=== PATIENT | female | born 1950 | race Caucasian/White ===

== ENCOUNTER → 2016-11-22 | Outpatient (CLI) | payer OTHER, MEDICARE | END | disposition home or self-care (01) | LOC: C.RDSM 11:00 | PROVIDERS: ATTEND Physical Medicine & Rehabilitation Sports Medicine | DX: M17.0 Bilateral primary osteoarthritis of knee (principal) ==

== ENCOUNTER → 2017-07-05 | Outpatient (CLI) | payer OTHER, MEDICARE | END | disposition home or self-care (01) | LOC: C.RDSM 14:17 | PROVIDERS: ATTEND Physical Medicine & Rehabilitation Sports Medicine | DX: M25.551 Pain in right hip (principal) ==

== ENCOUNTER → 2017-09-25 | Outpatient (CLI) | payer OTHER, MEDICARE | END | disposition home or self-care (01) | LOC: C.RDSM 14:44 | PROVIDERS: ATTEND Physical Medicine & Rehabilitation Sports Medicine | DX: M25.551 Pain in right hip (principal); M17.0 Bilateral primary osteoarthritis of knee ==

== ENCOUNTER 2018-02-06 06:53 | Inpatient (IN) | payer OTHER, MEDICARE ==
[2018-01-24 14:32] VITALS: BMI 32.0
--- NOTE | 2018-01-24 15:18 | PAT Medication Instructions ---
Service Date January 24, 2018. Current Home Medication List Aspirin (Aspirin Ec), 81 MG PO QPM Atorvastatin (Lipitor), 20 MG PO HS Coenzyme Q10 (Ubidecarenone) (Coq10), 100 MG PO QPM Fexofenadine-Pseudoephedrine (Anabella-D 24 Hour Allergy), 1 TAB PO HS Glyburide (Micronase), 5 MG PO BID Hydrochlorothiazide (Hctz), 25 MG PO QPM Insulin Glargine (Lantus), 32 UNITS SC QAM Metformin Hcl (Glucophage Ext Rel), 1,000 MG PO BID Ramipril (Ramipril), 1 CAP PO QPM Sitagliptin Phosphate (Januvia), 100 MG PO QAM [Magnesium Tartrate], 250 MG PO BID [Nasocort], 2 SPRAYS INTNAS HS Medication Instructions For Your Scheduled Surgery - Hold the following medications starting tomorrow 01/25: Coenzyme Q10 (Ubidecarenone) (Coq10), 100 MG PO QPM - Hold the following medications the morning of surgery: Glyburide (Micronase), 5 MG PO BID Metformin Hcl (Glucophage Ext Rel), 1,000 MG PO BID Sitagliptin Phosphate (Januvia), 100 MG PO QAM [Magnesium Tartrate], 250 MG PO BID - Take the following medications as scheduled the night before surgery: Aspirin (Aspirin Ec), 81 MG PO QPM Atorvastatin (Lipitor), 20 MG PO HS Fexofenadine-Pseudoephedrine (Anabella-D 24 Hour Allergy), 1 TAB PO HS Glyburide (Micronase), 5 MG PO BID Hydrochlorothiazide (Hctz), 25 MG PO QPM Metformin Hcl (Glucophage Ext Rel), 1,000 MG PO BID Ramipril (Ramipril), 1 CAP PO QPM [Magnesium Tartrate], 250 MG PO BID [Nasocort], 2 SPRAYS INTNAS HS - For Insulin Dependent Diabetic patients: Test blood sugar A.M. of surgery. - If BLOOD SUGAR IS MORE THAN 150, take half of your regular dose of: Insulin Glargine (Lantus) -- TAKE 16 UNITS - If BLOOD SUGAR IS LESS THAN 150, do not take any: Insulin Glargine ( Lantus) If you have any questions please call us at [phone] or [phone] or [phone]
[2018-01-24 15:33] LABS: BASO % 0.4 %; BASO ABS # 0.04 K/uL (0-0.2); EOS % 1.5 %; EOS ABS # 0.16 K/uL (0-0.5); HEMATOCRIT 42.1 % (37-47); HEMOGLOBIN 14.6 g/dL (12.0-16.0); IG# 0.03 K/uL (0.00-0.02); LYMPH % 16.9 %; LYMPH ABS # 1.81 K/uL (1.2-3.4); MEAN CELL VOLUME 87.9 fL (80-100); MEAN CORPUSCULAR HEMOGLOBIN 30.5 pg (25-34); MEAN CORPUSCULAR HGB CONC 34.7 g/dl (32-36); MEAN PLATELET VOLUME 9.5 fL (7.4-10.4); MONO % 6.6 %; NEUT % 74.3 %; NEUT ABS # 7.94 K/uL (1.4-6.5); PLATELET COUNT 322 K/uL (130-400); RED CELL DISTRIBUTION WIDTH CV 12.8 % (11.5-14.5); RED CELL DISTRIBUTION WIDTH SD 40.9 fL (36.4-46.3); WHITE BLOOD COUNT 10.68 K/uL (4.8-10.8)
[2018-01-24 15:42] LABS: INR 0.9 (0.9-1.1); PTT PATIENT 24.6 SECONDS (21.0-31.0)
[2018-01-24 15:46] LABS: CALCIUM 9.9 mg/dl (8.5-10.1); CREATININE 0.93 mg/dl (0.60-1.20); POTASSIUM 3.8 mmol/L (3.5-5.1)
--- NOTE | 2018-01-24 15:51 | DIAGNOSTIC IMAGING REPORT ---
CHEST 2 VIEWS ROUTINE CLINICAL HISTORY: Preoperative chest COMPARISON STUDY: No previous studies for comparison. FINDINGS: The cardiac and mediastinal contours are normal. There is no evidence of focal pulmonary consolidation. There is no evidence of failure. No pleural effusions are visualized.[ IMPRESSION: No active disease in the chest. Electronically signed by: Adiel Saeed M.D. 01/24/2018 3:50 PM Dictated Date/Time: 01/24/2018 3:49 PM
--- NOTE | 2018-01-29 13:00 | History and Physical ---
History & Physical Date & Time of Service: January 29, 2018 at 12:36 Chief Complaint: Right Knee Arthritis Primary Care Physician: Chen Pike DO History of Present Illness Source: patient Patient is a 68-year-old female who is here today for preoperative history and physical. She is scheduled to have an elective right total knee arthroplasty by Dr. Vivek Brito on February 06, 2018. She has been having ongoing right knee pain for many months and upwards of a year. Over the last year, her pain has progressively worsened. She has failed conservative treatment which has consisted of corticosteroid injections and viscosupplementation. She has pain in her right knee that is increased with activity. Her pain is also increased with weightbearing. She has decreasing activities of daily living due to pain in her right knee. She has limited range of motion and pain with range of motion of her right knee. Aggravating activities include walking, going up and down steps, pain with rest and sometimes night pain. She states that her pain radiates from her knee up into her hip. Prior treatments include nonsteroid anti-inflammatory drugs, corticosteroid injections and viscous supplementation. She also ambulates with the assistance of a cane as needed. Due to her failure of conservative treatment, she wishes to proceed with surgery. Risks and complications of the surgery were explained to the patient. Her surgery was scheduled. Past Medical/Surgical History Past medical history: 1. Hypertension 2. High cholesterol 3. Insulin-dependent diabetes 4. Osteoarthritis 5. Acid reflux 6. Obesity Past surgical history: 1. section in June 1978 2. Right knee arthroscopy Family History Family history: There is a strong family history of cardiac disease. Patient states that her mother had a history of having a CABG and her arteries Re- clogged 6 weeks after surgery. She has had 2 brothers that have had myocardial infarctions and strokes. Father has a history of coronary thrombosis and metabolic syndrome as well as diabetes. Social History Uses a cane to assist with ambulation. She does have a walker prescription that she will get preoperatively. Smoking Status: Never Smoker Alcohol Use: none Drug Use: none Marital Status: Housing status: lives with significant other Occupational Status: employed (Works as a CPA.) Allergies Coded Allergies: Codeine (Verified Allergy, Mild, ITCHING, 01/24/18) ITCHING AND RASH Morphine (Verified Allergy, Unknown, RASH, 01/24/18) Amoxicillin (Verified Adverse Reaction, Mild, GI UPSET, 01/24/18) Home Medications Scheduled Aspirin (Aspirin Ec), 81 MG PO QPM Atorvastatin (Lipitor), 20 MG PO HS Coenzyme Q10 (Ubidecarenone) (Coq10), 100 MG PO QPM Fexofenadine-Pseudoephedrine (Anabella-D 24 Hour Allergy), 1 TAB PO HS Glyburide (Micronase), 5 MG PO BID Hydrochlorothiazide (Hctz), 25 MG PO QPM Insulin Glargine (Lantus), 32 UNITS SC QAM Metformin Hcl (Glucophage Ext Rel), 1,000 MG PO BID Ramipril (Ramipril), 1 CAP PO QPM Sitagliptin Phosphate (Januvia), 100 MG PO QAM [Magnesium Tartrate], 250 MG PO BID [Nasocort], 2 SPRAYS INTNAS HS Review of Systems Constitutional: No fever, No chills, No sweats, No fatigue Eyes: No worsening of vision, No redness, No discharge ENT: No hearing loss, No sore throat, No tinnitus, No dental problems Respiratory: No cough, No sputum, No wheezing, No shortness of breath, No dyspnea on exertion Cardiovascular: No chest pain, No edema, No palpitations Abdomen: No pain, No nausea, No vomiting, No diarrhea, No constipation Genitourinary - Female: No dysuria, No urinary frequency, No urinary urgency, No urinary incontinence Neurologic: No memory loss, No numbness/tingling Psychiatric: No depression symptoms, No anxiety, No insomnia Endocrine: No fatigue Hematologic / Lymphatic: No abnormal bleeding/bruising, No clotting problems Integumentary: No rash, No itch Allergic / Immunologic: No food allergies, No hives, No frequent infections, No poor healing Physical Exam General Appearance: WD/WN, no apparent distress Head: normocephalic, atraumatic Eyes: normal inspection, PERRL, EOMI ENT: normal ENT inspection, hearing grossly normal, TMs normal, pharynx normal Neck: supple, no adenopathy, no carotid bruits, trachea midline Respiratory/Chest: chest non-tender, lungs clear, normal breath sounds, no respiratory distress, no accessory muscle use Cardiovascular: regular rate, rhythm, no edema, no JVD, no murmur, normal peripheral pulses Abdomen/GI: normal bowel sounds, non tender, soft Extremities/Musculoskelatal: no calf tenderness, normal capillary refill, no pedal edema, non-tender, pelvis stable, + pertinent finding (Exam of right knee : Valgus alignment of both knees, left greater than right. MCL is intact. Her deformity is not passively correctable. Range of motion is 0-130 she has mild tenderness over the lateral joint line. No effusion. Normal sensation and normal motor strength throughout. She would independently do a straight leg raise.) Neurologic/Psych: no motor/sensory deficits, alert, normal mood/affect, oriented x 3 Skin: normal color, warm/dry Lymphatic: no adenopathy Diagnostics Laboratory Results 01/24/18 15:00 Red Blood Count 4.79, Mean Corpuscular Volume 87.9, Mean Corpuscular Hemoglobin 30.5, Mean Corpuscular Hemoglobin Concent 34.7, Mean Platelet Volume 9.5, Neutrophils (%) (Auto) 74.3, Lymphocytes (%) (Auto) 16.9, Monocytes (%) (Auto) 6.6, Eosinophils (%) (Auto) 1.5, Basophils (%) (Auto) 0.4, Neutrophils # (Auto) 7.94, Lymphocytes # (Auto) 1.81, Monocytes # (Auto) 0.70, Eosinophils # (Auto) 0.16, Basophils # (Auto) 0.04 01/24/18 15:00 Test 01/24/18 15:00 White Blood Count 10.68 K/uL (4.8-10.8) Red Blood Count 4.79 M/uL (4.2-5.4) Hemoglobin 14.6 g/dL (12.0-16.0) Hematocrit 42.1 % (37-47) Mean Corpuscular Volume 87.9 fL (80-100) Mean Corpuscular Hemoglobin 30.5 pg (25-34) Mean Corpuscular Hemoglobin Concent 34.7 g/dl (32-36) Platelet Count 322 K/uL (130-400) Mean Platelet Volume 9.5 fL (7.4-10.4) Neutrophils (%) (Auto) 74.3 % Lymphocytes (%) (Auto) 16.9 % Monocytes (%) (Auto) 6.6 % Eosinophils (%) (Auto) 1.5 % Basophils (%) (Auto) 0.4 % Neutrophils # (Auto) 7.94 K/uL (1.4-6.5) Lymphocytes # (Auto) 1.81 K/uL (1.2-3.4) Monocytes # (Auto) 0.70 K/uL (0.11-0.59) Eosinophils # (Auto) 0.16 K/uL (0-0.5) Basophils # (Auto) 0.04 K/uL (0-0.2) RDW Standard Deviation 40.9 fL (36.4-46.3) RDW Coefficient of Variation 12.8 % (11.5-14.5) Immature Granulocyte % (Auto) 0.3 % Immature Granulocyte # (Auto) 0.03 K/uL (0.00-0.02) Prothrombin Time 9.9 SECONDS (9.0-12.0) Prothromb Time International Ratio 0.9 (0.9-1.1) Activated Partial Thromboplast Time 24.6 SECONDS (21.0-31.0) Partial Thromboplastin Ratio 0.9 Anion Gap 8.0 mmol/L (3-11) Est Creatinine Clear Calc Drug Dose 77.0 ml/min Estimated GFR () 72.2 Estimated GFR (Non- 62.3 BUN/Creatinine Ratio 19.1 (10-20) Calcium Level 9.9 mg/dl (8.5-10.1) Diagnostic Radiology Radiology images: X-rays of bilateral knees consistent bilateral AP, lateral and merchant views. Show severe end-stage osteoarthritis subchondral sclerosis and osteophyte formation especially in the lateral compartment. He also has valgus deformity. She also degenerative changes throughout her patellofemoral joint as well. No fractures identified. CXR normal Normal EKG Impression Assessment and Plan Assessment: End-stage osteoarthritis right knee Plan: Patient is scheduled for an elective right total knee arthroplasty scheduled on February 06, [address] Vivek Brito. She will be admitted for an inpatient stay after her surgery. She will have spinal anesthesia or peripheral nerve block. We will use Lovenox 30 mg twice a day 2-4 weeks after surgery for DVT prophylaxis. Risks and complications of surgery were explained to the patient and include but are not limited to infection, pain, bleeding, scarring, nerve and blood vessel damage, wound primes, weakness, stiffness, incomplete relief of symptoms, hardware failure, fracture, loosening, wear, blood clots, embolisms , heart attack, stroke and . Informed consent was obtained. She does have a walker that she can use after surgery. Postoperative course was discussed. Inpatient stay was discussed. She will preadmission testing and which she will obtain a preoperative CBC, BMP, PT/INR, PTT, type and screen, chest x-ray, EKG and preoperative medical clearance will be obtained. She would like to go home at discharge with in home health and physical therapy for approximately 2 weeks. She will follow up with Dr. Brito as scheduled 10- 14 days after surgery for suture removal. All questions were answered and she knows call with any further problems, questions or concerns. Advanced Directives Existing Living Will: Yes Existing Power of Major Gifts Officer: Yes Resuscitation Status VTE Prophylaxis Will order VTE Prophylaxis: Yes
[~2018-02-06] VITALS: Ht 182.9 cm; Wt 107.0 kg
[2018-02-06] VITALS (9 sets, daily range): BP systolic 96–174; BP diastolic 64–95; PULSE 63–98; TEMP 36.3–36.6; O2SAT 90–97; Ht 182.9 cm; Wt 107.0 kg
[2018-02-06] MEDS: TRANEXAMIC ACID INJ 1,000 MG x 2 Bags IV SCH ×4 (06:30→09:12)
[~2018-02-06 06:53] MED LIST: ACETAMINOPHEN 500 MG TAB PO SCH; ASPI81TA28 PO; ATOR-22 PO; CEFAZOLIN 2000MG IV PUSH 15 ML IV SCH; CLONIDINE HCL 0.1 MG/24 HR TRANSDERM SYS TD SCH; COEN100C7 PO; CeleBREX 200 MG CAP PO SCH; FAMOTIDINE 20 MG TAB PO SCH; FEXO1TAB58 PO; GABAPENTIN 300 MG CAP PO SCH; GLYB5TAB8 PO; HYDR25TA4 PO; INSDGI SC; LACTATED RINGER'S 1000ML 1,000 ML IV SCH; LACTATED RINGER'S 1000ML 500 ML IV SCH; LACTATED RINGER'S 1000ML IV SCH; METF1TAB53 PO; METOCLOPRAMIDE HCL 10 MG TAB PO SCH; NASOCORT INTNAS; OXYCODONE HCL 10 MG TABCR (OXYCONTIN) PO SCH; RAMI10CA PO; ROPIVACAINE 5MG/ML 30 ML 150 MG, BUPIVACAINE 0.5% MPF INJ 30 ML, EpINEphrine HCL INJ 0.... INFIL SCH; SITA100T3 PO; TRAMADOL HCL 50 MG TAB PO SCH; [UNRECOGNIZED DRUG - OTHER] PO
[2018-02-06] MEDS ORDERED: PHENYLEPHRINE 100MCG/ML 5ML SYR IV PRN (07:00)
[2018-02-06] MEDS ORDERED: EpHEDrine SULFATE INJ 50 MG/ML AMP IV PRN (07:00)
[2018-02-06] MEDS ORDERED: ONDANSETRON INJ 2 MG/ML 2 ML VIAL IV PRN ×2 (07:00→13:15)
[2018-02-06] MEDS ORDERED: FENTANYL CITRATE INJ 50 MCG/1 ML 2 ML VIAL IV PRN (07:00)
[2018-02-06] MEDS ORDERED: ATROPINE SULFATE 0.1 MG/ML 5ML SYR IV PRN (07:00)
--- NOTE | 2018-02-06 07:39 | History & Physical Bridge Note ---
H&P Re-Evaluation Bridge Note: I have examined the patient, reviewed the History & Physical and in the interval since the performance of the History & Physical I have noted the following changes of clinical significance: No changes noted
[2018-02-06] MEDS ORDERED: MIDAZOLAM HCL 1 MG/ML 2ML VIAL ONE (07:55)
[2018-02-06] MEDS ORDERED: FENTANYL CITRATE INJ 50 MCG/1 ML 2 ML VIAL ONE (07:55)
[2018-02-06] MEDS ORDERED: NURSING VERBAL MED ORDER ONE ×3 (08:00→15:45)
[2018-02-06] MEDS ORDERED: BUPIVACAINE 0.25% 30 ML VIAL ONE (09:16)
[2018-02-06] MEDS ORDERED: BUPIVACAINE 0.5 % 5 MG/1 ML PF 10ML VIAL ONE (09:16)
[2018-02-06] MEDS ORDERED: BACITRACIN 50000 UNIT VIAL ONE (09:44)
[2018-02-06] MEDS ORDERED: ORTHO JOINT ANESTHETIC ONE (09:44)
[2018-02-06] MEDS ORDERED: VANCOMYCIN HCL 1000MG/20ML VIAL ONE (09:44)
[2018-02-06] MEDS ORDERED: POVIDONE-IODINE OP SOLN 30 ML BTL ONE (09:44)
[2018-02-06] MEDS ORDERED: PROPOFOL IV EMULSION 10 MG/ML 20 ML VIAL ONE ×3 (10:19→12:26)
[2018-02-06] MEDS ORDERED: LIDOCAINE HCL 2% 2 ML VIAL (20MG/ML) ONE (10:19)
[2018-02-06] MEDS ORDERED: ONDANSETRON INJ 2 MG/ML 2 ML VIAL ONE (10:19)
--- NOTE | 2018-02-06 12:46 | [facility] Post Operative Brief Note ---
Immediate Operative Summary Operative Date February 06, 2018. Pre-Operative Diagnosis End-Stage Osteoarthritis, Right Knee Post-Operative Diagnosis End-Stage Osteoarthritis, Right Knee Procedure(s) Performed Right Total Knee Arthroplasty Surgeon Dr. Vivek Brito Emergency Specialist Surgeon(s) Dr. Rian Frausto and Tanisha Sidhu PA-C Estimated Blood Loss 20ML Findings Consistent with Post-Op Diagnosis Specimens Permanent Solution: A.) Right Knee Bone and Tissue Drains None Anesthesia Type MAC Spinal Regional Complication(s) none Disposition Accompanied Pt To Recover: no Disposition: Recovery Room / PACU
--- NOTE | 2018-02-06 13:14 | [facility] Operative Report ---
Operative Report Operative Date February 06, 2018. Pre-Operative Diagnosis End-Stage Osteoarthritis, Right Knee Post-Operative Diagnosis End-Stage Osteoarthritis, Right Knee Procedure(s) Performed Right Total Knee Arthroplasty Surgeon Dr. Vivek Brito Homeland [employer] Program Specialist Surgeon(s) Dr. Rian Frausto and Tanisha Sidhu PA-C Estimated Blood Loss 20ML Findings Severe lateral compartment and patellofemoral osteoarthritis Specimens Permanent Solution: A.) Right Knee Bone and Tissue Drains None Anesthesia Type MAC Spinal Regional Complication(s) none Disposition no Recovery Room / PACU Indications Patient is a 68-year-old female with signs and symptoms of right knee lateral compartment osteoarthritis refractory to nonsurgical methods of management. Description of Procedure Informed consent obtained. Patient identified as Kathy Molina. She identified the operative site as the right knee. I marked with my initials. A preop surgical timeout was performed. Preop dose of IV antibiotics was given. She was positioned supine on the OR table with a tourniquet on the right thigh and a bump under the right calf. Exam under anesthesia revealed trace MCL laxity in mid position valgus alignment range of motion 0/7/125. The right leg was prepped and draped in usual sterile fashion DVT prophylaxis intraoperatively with foot pumps postoperatively with early mobility and Lovenox. The limb was exsanguinated with the Esmarch. Tourniquet inflated to 250 mmHg. A midline longitudinal incision was made approximately 20 cm in length. This was followed by medial parapatellar arthrotomy. Minimal medial release was performed. The retropatellar fat pad was resected. The synovial reflection in the lateral gutter was divided. Soft tissue on the anterior aspect of the distal femur was removed. There was significant marginal osteophytes throughout the knee particular on the patella and lateral compartment. These were removed. There are grade 4 changes on the lateral femur and tibia with eburnation and central wear. There is grade 3 and 4 chondrosis of the patella and of the lateral compartment. The cruciate ligaments were intact and the medial side looked relatively normal. The cruciate ligaments were resected and the knee was subluxated. Corrections Caseworker hole was drilled into the proximal tibia just in front of the tibial spines. An intramedullary alignment selena was inserted. The 0 cutting block was aligned and set to take 6 off of the medial side corresponding to a skim cut laterally. This cut was then made. A ferry pilot hole was drilled into the distal femur followed by insertion of the distal femoral cutting guide set at 5 valgus angle 14 mm thickness. This cut was made in the extension gap was too tight and therefore went back and recut an additional 2 off of the tibia which resulted in a symmetric 10 space. The trans-epicondylar axis was marked out the distal femoral sizing block was applied and sized to a 4. The external rotation holes were drilled the cutting block was applied. Collateral ligaments protected and the cuts were made. There was a symmetric rectangular flexion gap for a 10 spacer. There was a trace bit of residual MCL laxity both in full extension and at 90. The box cutting guide was applied lateralized and this cut was made in the 4 standard prosthesis was applied. On the tibial side a size 3 was aligned and pinned in place. The keel was prepared with the drill and punch. This was followed by trialing which showed demonstrated full extension neutral alignment no laxity in full extension. There was trace LCL laxity at mid position and trace to 1+ in mid position. There is trace MCL laxity at 90 and nothing laterally. Attention was turned the patella was measured to be 22 mm in thickness the guide was set preserved 14 mm of bone and the cut was made a 38 oval dome patella was aligned and the lug holes were drilled. The or the joint mix was injected in the back of the knee the canals are plugged and pulse lavage of the bony surfaces was performed followed by meticulous drying. 2 bags of Simplex P cement each containing 2 g of vancomycin were mixed for 1 minute. Then while in a doughy state the posterior condyles were smeared and the femur tibia and patella were cemented in place and the knee was held for extension until cement hardened. At this time the tourniquet was let down and meticulous hemostasis was performed. Extraneous cement was removed from the back of the knee. Trialing again was performed and the after mentioned laxity pattern was noted and the final 10 mm thick polyethylene insert was applied. [place] assisted flexion with the extensor mechanism closed was approximately 120-125. Composite patellar thickness was 24 mm. Patella tracked perfectly fine with no hands technique. Copious lavage was performed. The cement was hardening needing the rest of the or the joint mix was injected in the Betadine lavage was performed. The extensor mechanism was closed with #2 FiberWire and above the equator the patella and running and interrupted #1 Vicryl below the skin was closed in layers with 0 and 2-0 Vicryl and dipak on the skin. A soft sterile dressing was applied consisting of ABDs 4 x 4's Xeroform and a full-length Buster wrap. Patient was then awakened from anesthesia without difficulty and taken to the recovery room in stable condition. The resected bone was sent for specimen. There were no complications. Counts were correct in the case. Blood loss is estimated to be 20 cc. Patient will be rehabilitated according to the a standard total knee protocol. Lovenox will be done the morning after surgery. Components inserted with the [employer] PFC Sigma rotating platform knee a size 10 spacer 3 tibia 4 left posterior stabilized femur and a 38 mm 3 peg oval dome patella. The back of the knee was inspected for cement. Prior to inserting the components small osteophytes posterior medial and posterior lateral were removed with an osteotome curette and rongeur. I attest to the content of the Intraoperative Record and any orders documented therein. Any exceptions are noted below.
[2018-02-06] MEDS ORDERED: ACETAMINOPHEN 325 MG TAB PO PRN (13:15)
[2018-02-06] MEDS ORDERED: HYDROmorphone INJ 0.5 MG/0.5 ML SYR IV PRN (13:15)
[2018-02-06] MEDS ORDERED: DiphenhydrAMINE HCL 50 MG/ML VIAL IV PRN (13:15)
[2018-02-06] MEDS ORDERED: TRAMADOL HCL 50 MG TAB PO PRN (13:15)
[2018-02-06] MEDS ORDERED: MAGNESIUM HYDROXIDE SUSP 30 ML UDC PO PRN (13:15)
[2018-02-06] MEDS ORDERED: METOCLOPRAMIDE HCL INJ 5 MG/ML 2 ML VIAL IV PRN (13:15)
[2018-02-06] MEDS ORDERED: SOD PHOSPHATE/SOD BIPHOSPHATE ENEMA 132 ML BTL PR PRN (13:15)
[2018-02-06] MEDS ORDERED: BISACODYL 10 MG SUPP PR PRN (13:15)
--- NOTE | 2018-02-06 13:28 | [facility] Operative Report ---
Operative Report Operative Date February 06, 2018. Pre-Operative Diagnosis End-Stage Osteoarthritis, Right Knee Post-Operative Diagnosis End-Stage Osteoarthritis, Right Knee Procedure(s) Performed Right Total Knee Arthroplasty Surgeon Dr. Vivek Brito Powder Hand Surgeon(s) Dr. Rian Frausto and Tanisha Sidhu PA-C Estimated Blood Loss 20ML Findings DJD right knee Specimens Permanent Solution: A.) Right Knee Bone and Tissue Drains None Anesthesia Type MAC Spinal Regional Complication(s) none Disposition no Recovery Room / PACU Description of Procedure Patient was taken to the operating room, placed under IV sedation with spinal anesthesia. She also had a peripheral nerve block of her right lower extremity. Timeout was performed. She was given 2 g of IV Ancef for surgical prophylaxis. She was prepped and draped in routine sterile fashion. I was present in the entire case, please see Dr. Brito's operative report for further detail. Patient was awakened and transferred to the recovery room in stable condition. I attest to the content of the Intraoperative Record and any orders documented therein. Any exceptions are noted below.
--- NOTE | 2018-02-06 13:40 | Anesthesiology Progress Note ---
Anesthesia Post Op Note Date & Time February 06, 2018 at 13:40 Vital Signs Pain Intensity: 0 Vital Signs Past 12 Hours Date Time Temp Pulse Resp B/P (MAP) Pulse Ox O2 Delivery O2 Flow Rate FiO2 02/06/18 13:30 79 18 134/68 94 Nasal Cannula 2 02/06/18 13:20 85 18 139/69 95 Nasal Cannula 2 02/06/18 13:13 36.5 88 17 132/83 95 Nasal Cannula 2 02/06/18 08:04 36.6 98 20 174/95 92 Room Air Notes Mental Status: alert / awake / arousable, participated in evaluation Pt Amnestic to Procedure: Yes Nausea / Vomiting: adequately controlled Pain: adequately controlled Airway Patency, RR, SpO2: stable & adequate BP & HR: stable & adequate Hydration State: stable & adequate Neuraxial Anesthesia: was administered, sensory block is resolving Anesthetic Complications: no major complications apparent
[2018-02-06] MEDS ORDERED: PHARMACY GLYCEMIC MGMT CONSULT PRN (13:54)
--- NOTE | 2018-02-06 14:04 | DIAGNOSTIC IMAGING REPORT ---
RIGHT KNEE 2 VIEWS History: Right total knee arthroplasty. Degenerative arthritis. Postop. FINDINGS: The patient is status post a right total knee arthroplasty. The hardware is intact. No fracture or dislocation. Skin dipak are in place. IMPRESSION: Right total knee arthroplasty. No evidence for hardware complication. Electronically signed by: Jesse Hopper M.D. 02/06/2018 2:02 PM Dictated Date/Time: 02/06/2018 2:02 PM
--- NOTE | 2018-02-06 15:02 | Pharmacy Progress Note ---
Glycemic Control Intl Consult Date of Service February 06, 2018. Scope Glycemic Pharmacist consulted by Katya Sidhu PA-C on 02/06/18 for glycemic control and to write orders per [facility] inpatient glycemic control protocol Objective Weight (Kilograms): 107.000 Accuchecks BSG (last 24hrs): Test 02/06/18 07:23 02/06/18 13:16 Bedside Glucose 185 mg/dl (70-90) 161 mg/dl (70-90) Recent Pertinent Medications Outpatient Anti-diabetic Regimen: * Lantus 32 units SQ daily * Glyburide * Metformin * Januvia Risk Factors for Insulin Resistance: * Steroids * Recent Surgery * Diet Assessment & Plan ASSESSMENT: * 68yo T2DM female with unknown degree of outpatient control. A1c not reported. Will order per protocol for AM labs POD#1 * Pt is maintained on oral antidiabetic agents as an outpatient * Oral agents are not recommended for inpatient use d/t drug interactions, changing PO intake, and difficulty titrating for acute hyper/hypoglycemia. ADA recommends re-initiating outpatient oral agents 1-2 days prior to discharge if/ when appropriate if they were held on admission. * Will hold oral agents for admission and utilize SQ basal bolus insulin regimen which is the recommended regimen for inpatient glycemic control. * Will initiate stressed outpatient insulin dosing for stress of surgery/ steroids/held oral agents titrate based on BSG trends. PLAN FOR INPATIENT GLYCEMIC CONTROL: * Outpatient oral diabetes medications * May continue Januvia as it has a very low risk of hypoglycemia and can help minimize doses of insulin needed * Hold metformin until at least POD#1 after renal function assessed and PO intake adequate * Hold glipizide until discharge as it has a high risk of hypoglycemia * Basal insulin * Continue outpatient dosing, but stress dosing x 1 today in anticipation of increased needed from surgery/held oral agents and ordered dxm tomorrow AM * Lantus 42 units SQ x 1 dose now then resume outpatient dosing of Lantus 32 units SQ AM tomorrow * Bolus insulin * NovoLog per scale ACHS or Q6hrs while NPO * Goal Range: Low 110 mg/dL - High 140 mg/dL * Correction Factor: 20 mg/dL/unit * Nutritional / Prandial insulin per carb ratio of 1 unit per 6 grams CHO consumed * A1c with AM labs * Please note that the plan above was derived based on current level of insulin resistance and hospital stress. These recommendations are appropriate for inpatient admission only. Plan of care upon discharge will need to be reassessed to avoid potential outpatient hypo/hyperglycemia. Thank you.
[2018-02-06] MEDS ORDERED: INSULIN GLARGINE SOLOSTAR 100 UNITS/ML 3 ML PEN SC ONE (15:15)
[2018-02-06] MEDS: CHECK CLONIDINE PATCH PLACEMENT SCH ×2 (15:30→23:36)
[2018-02-06] MEDS: KETOROLAC TROMETHAMINE 15 MG/ML VIAL IV. SCH ×2 (15:35→21:21)
[2018-02-06] MEDS: SITAGLIPTIN 100 MG TAB PO SCH (16:39)
[2018-02-06] MEDS: HYDROCHLOROTHIAZIDE 25 MG TAB PO SCH (16:39)
[2018-02-06] MEDS: SODIUM CHLORIDE 0.9% 1000ML 1,000 ML IV SCH (16:39)
[2018-02-06] MEDS: ENALAPRIL MALEATE 10 MG TAB PO SCH (16:39)
--- NOTE | 2018-02-06 16:54 | Progress Note ---
Progress Note Date of Service February 06, 2018. Progress Note She is resting comfortably in bed. Pain is minimal. She is afebrile her vital signs are stable. She has a 2+ dorsalis pedis pulse with normal sensation. She has 5 out of 5 ankle into plantarflexion and dorsiflexion strength. She has a half grade weakness on plantar flexion. Her dressing is clean and dry. Surgical findings reviewed and discussed. She will continue along the postoperative plan for now. X-rays of the knee show excellent positioning neutral alignment and no evidence of complication.
[2018-02-06] MEDS: OXYCODONE HCL IR 5 MG TAB (IMMEDIATE RELEASE) PO PRN ×2 (17:13→23:35)
[2018-02-06] MEDS: INSULIN ASPART 100 UNITS/ML 3 ML PEN SC SCH ×2 (17:54→21:23)
[2018-02-06] MEDS: CEFAZOLIN IV 2,000 MG in SYRINGE 0 ML IV SCH (19:01)
[2018-02-06] MEDS ORDERED: HYDROCHLOROTHIAZIDE 25 MG TAB PO SCH (21:00)
[2018-02-06] MEDS ORDERED: ENALAPRIL MALEATE 10 MG TAB PO SCH (21:00)
[2018-02-06] MEDS ORDERED: NON-FORMULARY MEDICATION (Coenzyme Q10 (Ubidecarenone) (Coq10) 100 MG) PO SCH (21:00)
[2018-02-06] MEDS ORDERED: INSULIN GLARGINE SOLOSTAR 100 UNITS/ML 3 ML PEN SC SCH (21:00)
[2018-02-06] MEDS ORDERED: METFORMIN HCL 500 MG TABCR PO SCH (21:00)
[2018-02-06] MEDS: TRIAMCINOLONE ACET NASAL SPRAY 10.8ML BTL SCH (21:18)
[2018-02-06] MEDS: DOCUSATE SODIUM 100 MG CAP PO SCH (21:19)
[2018-02-06] MEDS: FEXOFENADINE HCL 180 MG TAB PO SCH (21:19)
[2018-02-06] MEDS: ASPIRIN 81 MG ECTAB PO SCH (21:20)
[2018-02-06] MEDS: ATORVASTATIN 20 MG TAB PO SCH (21:20)
[2018-02-06] MEDS: MAGNESIUM OXIDE 400 MG TAB PO SCH (21:20)
[2018-02-07] MEDS: CEFAZOLIN IV 2,000 MG in SYRINGE 0 ML IV SCH (02:23)
[2018-02-07] MEDS: SODIUM CHLORIDE 0.9% 1000ML 1,000 ML IV SCH ×2 (02:23→09:12)
[2018-02-07 03:05] VITALS: BP 99/60; PULSE 65; TEMP 36.6; O2SAT 95
[2018-02-07] MEDS: KETOROLAC TROMETHAMINE 15 MG/ML VIAL IV. SCH ×2 (04:32→10:29)
[2018-02-07 07:08] LABS: HEMATOCRIT 32.2 % (37-47); HEMOGLOBIN 10.7 g/dL (12.0-16.0); MEAN CELL VOLUME 90.4 fL (80-100); MEAN CORPUSCULAR HEMOGLOBIN 30.1 pg (25-34); MEAN CORPUSCULAR HGB CONC 33.2 g/dl (32-36); PLATELET COUNT 210 K/uL (130-400); RED CELL DISTRIBUTION WIDTH CV 12.8 % (11.5-14.5); RED CELL DISTRIBUTION WIDTH SD 42.8 fL (36.4-46.3); WHITE BLOOD COUNT 11.52 K/uL (4.8-10.8)
[2018-02-07] MEDS ORDERED: DEXAMETHASONE 4 MG TAB PO SCH (07:30)
[2018-02-07 07:42] VITALS: BP 100/64; PULSE 65; TEMP 36.5; O2SAT 98
[2018-02-07 07:45] LABS: CALCIUM 8.2 mg/dl (8.5-10.1); POTASSIUM 4.2 mmol/L (3.5-5.1)
[2018-02-07] MEDS: OXYCODONE HCL IR 5 MG TAB (IMMEDIATE RELEASE) PO PRN ×3 (07:49→22:03)
[2018-02-07] MEDS: CHECK CLONIDINE PATCH PLACEMENT SCH ×3 (07:50→23:45)
[2018-02-07] MEDS: PANTOprazole SOD 40 MG TAB PO SCH (08:51)
[2018-02-07] MEDS: MULTIVITAMIN TAB PO SCH (08:51)
[2018-02-07] MEDS: DOCUSATE SODIUM 100 MG CAP PO SCH ×2 (08:52→22:04)
--- NOTE | 2018-02-07 08:52 | Orthopedic Progress Note ---
Orthopedic Progress Note Date of Service February 07, 2018. Subjective Post OP Day: 1 Reports: feeling well, pain controlled w PO medications, Denies: complaints, chest pain, SOB, nausea / vomiting, light headedness, calf pain Objective calves soft nontender, N/V intact, capillary refill less than 2 sec., dressing C /D/I, A&O x3, toes mobile Strength 5/5. Sitting at beside, knee flexed to approximately 90 degrees. distal pulses 1+ Date Time Temp Pulse Resp B/P (MAP) Pulse Ox O2 Delivery O2 Flow Rate FiO2 02/07/18 08:00 Room Air 02/07/18 07:42 36.5 65 20 100/64 (76) 98 Room Air 02/07/18 03:05 36.6 65 17 99/60 (73) 95 Room Air 02/06/18 23:25 Room Air 02/06/18 22:38 36.5 63 16 112/73 (86) 97 Room Air 02/06/18 19:24 36.6 18 96/65 (75) 95 Room Air 02/06/18 17:11 36.3 73 16 159/78 (105) 90 Room Air 02/06/18 16:13 36.4 72 17 140/81 (100) 97 Nasal Cannula 2.0 02/06/18 15:14 36.3 75 18 118/77 (91) 94 Room Air 02/06/18 15:05 36.4 73 18 122/76 (91) 97 Nasal Cannula 2.0 02/06/18 15:00 Nasal Cannula 2.0 02/06/18 14:30 83 16 137/83 (101) 95 02/06/18 14:05 36.4 69 18 129/64 (85) 96 Nasal Cannula 2.0 02/06/18 14:05 Nasal Cannula 2.0 02/06/18 13:40 36.7 77 16 138/72 95 Nasal Cannula 2 02/06/18 13:30 79 18 134/68 94 Nasal Cannula 2 02/06/18 13:20 85 18 139/69 95 Nasal Cannula 2 02/06/18 13:13 36.5 88 17 132/83 95 Nasal Cannula 2 Laboratory Results 24 Hours: Test 02/07/18 06:53 Hematocrit 32.2 % Hemoglobin 10.7 g/dL Assessment & Plan Assessment: POD 1 - Right TKA Plan: OOB/WBAT RLE - with assistance of a walker H/H stable BSG well controlled - appreciate glycemic control assistance Ice to right knee as needed for pain/swelling Elevate right lower leg for swelling Ambulate as tolerated, encouraged exercises, but to not over do it. Continue Regular diet Lovenox to start this AM for DVT prophylaxis. Plans for discharge to home with home health and PT, probably tomorrow. Case management for disposition. Call with questions. Dr. Brito present for today's visit. Discharge Planning Discharge Planning: home with home health Pain Management: Percocet, Ultram DVT Prophylaxis: TEDs, Lovenox (30mg BID x 14 days.) Therapy: Physical Therapy
[2018-02-07] MEDS: ENOXAPARIN 30 MG/0.3 ML SYR SQ SCH ×2 (08:53→19:55)
[2018-02-07] MEDS: MAGNESIUM OXIDE 400 MG TAB PO SCH ×2 (08:53→22:05)
[2018-02-07] MEDS: INSULIN ASPART 100 UNITS/ML 3 ML PEN SC SCH ×4 (08:59→22:01)
[2018-02-07] MEDS ORDERED: SITAGLIPTIN 100 MG TAB PO SCH (09:00)
[2018-02-07] MEDS: INSULIN GLARGINE SOLOSTAR 100 UNITS/ML 3 ML PEN SC SCH (09:00)
[2018-02-07 09:17] LABS: HEMOGLOBIN A1C 6.5 % (4.5-5.6)
--- NOTE | 2018-02-07 10:21 | Clinical Documentation Query ---
CLINICAL DOCUMENTATION QUERY Dr. TRAVIS, In your clinical opinion is this patient being managed for: ( x ) Acute blood loss anemia ( ) Not Agree ( ) Other explanation of clinical findings (No explanation is considered a No Response) ( ) Unable to determine ( ) Need to Discuss (Phone CDS or qliq) (No discussion is considered a No Response) The medical record reflects the following clinical findings, treatment, and risk factors. Clinical Indicators: 68 yo female presenting with end stage OA R knee for a R TKR. Baseline Hgb 14.6, Hct 42.1, post op 10.7/32.2. Slightly hypotensive with BP 96/65 Treatment: monitor CBC, IV fluids Risk Factors: surgery Please clarify and document your clinical opinion in the progress notes and discharge summary. Terms such as "probable", "suspected", "likely", "questionable", "possible", or "still to be ruled out" are acceptable. IF IN AGREEMENT, YOU MUST DOCUMENT ABOVE DIAGNOSTIC STATEMENT IN DAILY PROGRESS NOTES AND DISCHARGE SUMMARY. This document is not part of the patient's record. Thank You, Bridgett Machado RN [phone]
--- NOTE | 2018-02-07 11:03 | Pharmacy Progress Note ---
Pharmacy Glycemic Short Note 2 Date of Service February 07, 2018. Item Value Date Time Hemoglobin A1c 6.5 % H 02/07/18 0653 Estimated Average Glucose 140 mg/dl 02/07/18 0653 Item Value Date Time Bedside Glucose 185 mg/dl H 02/06/18 0723 Bedside Glucose 161 mg/dl H 02/06/18 1316 Bedside Glucose 272 mg/dl H 02/06/18 1715 Bedside Glucose 242 mg/dl H 02/06/18 2038 Bedside Glucose 136 mg/dl H 02/07/18 0821 ASSESSMENT: * 68yo T2DM female with excellent outpatient control per recent A1c * Pt POD#1 s/p R TKA. goal is to maintain all BSGs <200 mg/dl (ideally <150 mg/ dl) to prevent post-op infectious complications * Glipizide and metformin on hold for admission * Continuing outpatient Basal insulin (Lantus), Januvia and utilizing SQ bolus insulin with NovoLog while Glipizide/metformin on hold * Pt tolerating PO, renal function WNL. Will resume metformin this evening and adjust bolus insulin parameters. * Resume glipizide on discharge secondary to high hypo risk with inpatient use. * Pt received one time dose of PO dexamethasone this morning * Expect BSGs to rise for the next 24-48hrs. Will continue aggressive bolus insulin scale and adjust based on BSG trends. PLAN FOR INPATIENT GLYCEMIC CONTROL: * Hold outpatient oral diabetes medications (Glipizide only) * Continue Januvia 100mg PO daily at 12 noon * Re-start Metformin ER 1,000mg PO BIDM this evening * Basal insulin * Lantus 32 units SQ daily in AM * Bolus insulin * NovoLog per scale ACHS or Q6hrs while NPO * Goal Range: Low 110 mg/dL - High 140 mg/dL * Correction Factor: 20 mg/dL/unit * Nutritional / Prandial insulin per carb ratio of 1 unit per 6 grams CHO consumed
[2018-02-07 11:14] VITALS: O2SAT 98
[2018-02-07 11:47] VITALS: BP 104/68; PULSE 73; TEMP 36.5; O2SAT 88
[2018-02-07] MEDS: SITAGLIPTIN 100 MG TAB PO SCH (13:12)
[2018-02-07] MEDS: HYDROCHLOROTHIAZIDE 25 MG TAB PO SCH (13:13)
[2018-02-07] MEDS: ENALAPRIL MALEATE 10 MG TAB PO SCH (13:13)
[2018-02-07 15:08] VITALS: BP 103/60; PULSE 67; TEMP 36.8; O2SAT 94
[2018-02-07] MEDS: METFORMIN HCL 500 MG TABCR PO SCH (18:09)
[2018-02-07] MEDS: TRIAMCINOLONE ACET NASAL SPRAY 10.8ML BTL SCH (21:00)
[2018-02-07] MEDS ORDERED: INSULIN GLARGINE SOLOSTAR 100 UNITS/ML 3 ML PEN SC SCH (21:00)
[2018-02-07] MEDS: CeleBREX 200 MG CAP PO SCH (22:05)
[2018-02-07] MEDS: FEXOFENADINE HCL 180 MG TAB PO SCH (22:20)
[2018-02-07] MEDS: ATORVASTATIN 20 MG TAB PO SCH (22:20)
[2018-02-07] MEDS: ASPIRIN 81 MG ECTAB PO SCH (22:20)
[2018-02-07 23:28] VITALS: BP 103/65; PULSE 74; TEMP 36.8; O2SAT 93
[2018-02-08 06:49] LABS: PTT PATIENT 29.2 SECONDS (21.0-31.0)
[2018-02-08 06:56] VITALS: BP 103/66; PULSE 74; TEMP 36.6; O2SAT 92
[2018-02-08] MEDS: OXYCODONE HCL IR 5 MG TAB (IMMEDIATE RELEASE) PO PRN (07:11)
[2018-02-08] MEDS: CHECK CLONIDINE PATCH PLACEMENT SCH (07:38)
[2018-02-08] MEDS: PANTOprazole SOD 40 MG TAB PO SCH (07:39)
[2018-02-08] MEDS: MULTIVITAMIN TAB PO SCH (07:39)
[2018-02-08] MEDS: INSULIN ASPART 100 UNITS/ML 3 ML PEN SC SCH ×2 (07:47→12:00)
[2018-02-08] MEDS: INSULIN GLARGINE SOLOSTAR 100 UNITS/ML 3 ML PEN SC SCH (07:48)
[2018-02-08 07:52] VITALS: BP 116/74; PULSE 73; TEMP 36.9; O2SAT 92
[2018-02-08] MEDS ORDERED: OXYC-57 PO (08:21)
[2018-02-08] MEDS ORDERED: LVNIS30 SQ (08:21)
[2018-02-08] MEDS ORDERED: ULT50X PO (08:21)
--- NOTE | 2018-02-08 08:22 | Discharge Instructions ---
Discharge Instructions Date of Service February 07, 2018. Admission Reason for Admission: Right Knee Arthritis Discharge Discharge Diagnosis / Problem: Degenerative Joint disease right knee Discharge Goals Goal(s): Decrease discomfort, Improve function, Increase independence Activity Recommendations Activity Limitations: per Instructions/Follow-up section Weightbearing Status: Right weightbearing (as tolerated with assistance of a walker) . Instructions / Follow-Up Instructions / Follow-Up New Medicine: * You will likely be taking one or more of these medications: 1. Lovenox- You will be on Lovenox for 2-4 weeks after surgery to prevent blood clots. Do not take anti- inflammatory pills (Advil or Aleve) while on Lovenox. Aspirin, 81 mg is OK. 2. Percocet - Take, as directed, when you need it, every four to six hours to control your pain. 3. Colace & Senokot - Take to prevent constipation which can be caused by narcotics. These can be bought [id number] at the pharmacy 4. Tramadol - Take, as directed, when you need it, every 4-6 hours to control your pain. * The most common side effects of pain medicine and iron are nausea and constipation. If nausea or constipation is too much of a problem or if you have any questions about your new medicines or doses, call [facility] at . We will try to help you manage these issues. VERY IMPORTANT TO READ AND REVIEW" Blood Clots and Blood Thinning Medicine: * You are given Lovenox during the immediate post-operative period to lessen the risk of blood clots forming in your legs and/or lungs. Lovenox is usually given for 2-4 weeks after surgery. * The prescription is for 30 mg injections. Take twice daily at the same time every day. * You need to get your blood checked on Monday or as directed. It's a blood count to check your platelet count. A prescription is provided at discharge that you will give to your home health nurse. Physical Therapy: * Do your physical therapy at home. These are the exercises you learned while in the hospital (quad sets, leg raises, calf pumps, gluteal squeezes, knee bending, and heel props.) You should do these exercises 3-4 times per day. * You will either go to inpatient rehab ([facility]), home with Home Therapy and nursing or home with outpatient rehab. You should do rehab with the therapist 2-3 times per week. You should do therapy on your own daily. * You may bear full weight on your leg with crutches or walker unless otherwise advised. Home Exercise: * You were shown a series of exercises (heel props, heel slides, etc.) in the hospital. Do these exercises three to four times each day including the exercises you were shown in physical therapy. Walking: * You may be up for short periods of time. Standing and walking for 1-2 hours at a time is usually okay. You should not stand or walk for excessive periods of time as this may cause increased pain and swelling. SELF CARE INSTRUCTIONS AFTER TOTAL KNEE REPLACEMENT A. You may need to continue a physical therapy program after discharge from the hospital. There are several options available to you. Your doctor will assist you in selecting the best one for you. 1. An out-patient facility 2 to 3 times a week for therapy or home therapy. 2. Continue working on all exercises taught to you in the hospital. Your goals should be to increase bending of your knee to 90 degrees and beyond and to fully straighten your knee. B. Your therapist will notify you when you are able to progress from a walker to a cane. C. Wear TEDS as much as possible.~ They may be removed at night for laundering. D. Do not place a pillow behind your knee when resting. A pillow at your ankle is okay. E. Ice your knee 15-20 minutes every 2-3 hours and elevate it above the level of your heart. F. You may shower on the fourth day after surgery using regular soap and water. Do not submerge until the wound is completely healed (approximately 2 weeks ). Until the fourth day after surgery, cover the incision/bandage with a bag or plastic wrap. G. Anyone who is touching your surgical incision area should wash their hands and wear gloves. H. Keep your incision covered with gauze pads under the GEOVANNY hose until it is dry. VERY IMPORTANT TO READ AND REVIEW A. YOU WILL BE GIVEN AN ORDER AT DISCHARGE FOR PT/INR (BLOOD WORK). PLEASE HAVE THIS DONE INSTRUCTED. PLEASE CALL OUR OFFICE AFTER YOUR BLOODWORK IS COMPLETE SO WE CAN TRACK YOUR RESULTS. IF YOU ARE GOING TO OUTPATIENT PHYSICAL THERAPY, YOU WILL NEED TO GO TO OUTPATIENT TESTING TO HAVE IT DRAWN. B. There are a few signs you need to watch for after you are home. Call [facility] if you notice any of the followin. Increased severe knee pain. Some pain is expected especially when you exercise. 2. Increased swelling in your leg or knee; pain or swelling of the calf muscle in either lower leg. 3. Any fluid drainage from the incision. 4. Shortness of breath or chest pain. 5. Numbness and tingling in the surgical extremity C. Please call [facility] at if you have any concerns or questions about your operation or recovery. The doctor or his nurse will return your call promptly. D. Do not have any elective dental work or other elective procedures done for 6 weeks after your knee replacement. When you have any invasive procedure (dental cleaning, extraction, colonoscopy etc) performed, you will need to take antibiotics to prevent infection from developing in your artificial joint. Tell your other health care providers you have an artificial joint. My office will supply you with further information and the antibiotics. Call your doctor if: * Temperature above 101 degrees F. * Pain not relieved by pain medicine ordered. * Increased drainage or redness from incision. * Notify your doctor with any questions or concerns. Follow-up Visit: You will follow-up with Dr. Brito 10-14 days after surgery. The office number is . Your scheduled follow up visit with Dr. Brito on 02/19/18 at 12:45 p.m. Avoid all tobacco products. If you need help to stop smoking, call [facility] at . This is a free call. Current Hospital Diet Patient's current hospital diet: Diabetes Type 2 Diet Discharge Diet Recommended Diet: Regular Diet, Diabetes Type 2 Diet Procedures Procedures Performed: Right Total Knee Arthroplasty Pending Studies Studies pending at discharge: no Laboratory Results Hemoglobin A1c Test 02/07/18 06:53 Range/Units Medical Emergencies . Who to Call and When: Medical Emergencies: If at any time you feel your situation is an emergency, please call 911 immediately. . Non-Emergent Contact Non-Emergency issues call your: Surgeon Call Non-Emergent contact if: temperature is above 101, your pain is not controlled, your pain is worsening, wound has increased drainage, wound has increased redness, wound has increased pain, you have any medication questions . "Provider Documentation" section prepared by Tanisha Sidhu. . [place] Drug Monitoring Program Search Results: patient reviewed within database, no issues identified
[2018-02-08 08:29] VITALS: O2SAT 92
[2018-02-08] MEDS: DOCUSATE SODIUM 100 MG CAP PO SCH (08:38)
[2018-02-08] MEDS: METFORMIN HCL 500 MG TABCR PO SCH (08:39)
[2018-02-08] MEDS: CeleBREX 200 MG CAP PO SCH (08:39)
[2018-02-08] MEDS: MAGNESIUM OXIDE 400 MG TAB PO SCH (08:39)
[2018-02-08] MEDS: ENOXAPARIN 30 MG/0.3 ML SYR SQ SCH (08:40)
--- NOTE | 2018-02-08 08:53 | Orthopedic Progress Note ---
Orthopedic Progress Note Date of Service February 08, 2018. Subjective Post OP Day: 2 Reports: feeling well, pain controlled w PO medications, Denies: complaints, chest pain, SOB, nausea / vomiting, light headedness, calf pain Objective calves soft nontender, N/V intact, capillary refill less than 2 sec., dressing C /D/I, incision C/D/I, A&O x3, toes mobile Dressings with mild dried bloody drainage. Incision intact. Anthony intact. Incision cleansed with sterile saline white. Redressed with ABD and Macho stocking. Minimal distal edema. Distal pulses 1+. Distal sensation normal. Date Time Temp Pulse Resp B/P (MAP) Pulse Ox O2 Delivery O2 Flow Rate FiO2 02/08/18 08:29 92 Room Air 02/08/18 07:52 36.9 73 24 116/74 (88) 92 Room Air 02/08/18 06:56 36.6 74 15 103/66 (78) 92 Room Air 02/07/18 23:50 Room Air 02/07/18 23:28 36.8 74 14 103/65 (78) 93 Room Air 02/07/18 16:30 Room Air 02/07/18 15:08 36.8 67 18 103/60 (74) 94 Room Air 02/07/18 11:47 36.5 73 18 104/68 (80) 88 Room Air 02/07/18 11:14 98 Room Air Assessment & Plan Assessment: POD 2 - Right TKA Acute blood loss anemia Plan: OOB/WBAT RLE - with assistance of a walker H/H stable BSG well controlled - appreciate glycemic control assistance Ice to right knee as needed for pain/swelling Elevate right lower leg for swelling Ambulate as tolerated, encouraged exercises, but to not over do it. Continue Regular diet Lovenox for DVT prophylaxis. Plan to DC home today with in-home health and physical therapy. Call with questions. We will discuss findings with Dr. Brito. Follow-up as scheduled. Discharge Planning Discharge Planning: home with home health Pain Management: Percocet, Ultram DVT Prophylaxis: TEDs, Lovenox (30mg BID x 14 days.) Therapy: Physical Therapy
[2018-02-08 09:46] VITALS: BP 116/74; PULSE 73; TEMP 36.9; O2SAT 92
--- NOTE | 2018-02-08 10:04 | Discharge Summary ---
Discharge Summary Date of Service February 08, 2018. Discharge Summary Admission Date: February 06, 2018 at 07:30 Discharge Date: February 08, 2018 Discharge Disposition: Home with services Principal Diagnosis: DJD right knee Secondary Diagnoses/Problems: Acute blood loss anemia Procedures: Right total knee arthroplasty 02/06/18 Consultations: Glycemic control consult Pending Studies/Follow-Up: You have a follow up with Dr. Brito on 02/19/18 at 12:45 a.m. Medication Reconciliation New Medications: Oxycodone/Acetaminophen 5MG/325MG (Percocet 5MG/325MG) Tab 1-2 TABLETS PO Q4H PRN for Pain, #30 TAB Enoxaparin (Lovenox) 30 Mg/0.3 Ml Inj 30 MG SQ Q12H for 14 Days, 1 Refill Tramadol HCl (Tramadol HCl) 50 Mg Tab 50-100 MG PO Q4H PRN for Pain, #30 TAB Continued Medications: Aspirin (Aspirin Ec) 81 Mg Tab 81 MG PO QPM Atorvastatin (Lipitor) 20 Mg Tab 20 MG PO HS, TAB Coenzyme Q10 (Ubidecarenone) (Coq10) 100 Mg Cap 100 MG PO QPM Fexofenadine-Pseudoephedrine (Anabella-D 24 Hour Allergy) 1 Tab Tab 1 TAB PO HS for 30 Days, TAB Glyburide (Micronase) 5 Mg Tab 5 MG PO BID, TAB Hydrochlorothiazide (Hctz) 25 Mg Tab 25 MG PO QPM, TAB Insulin Glargine (Lantus) 100 Unit/Ml Inj 32 UNITS SC QAM, VIAL Metformin Hcl (Glucophage Ext Rel) 1,000 Mg Tab 1000 MG PO BID, TAB Ramipril (Ramipril) 10 Mg Cap 1 CAP PO QPM for 90 Days, CAP 3 Refills Sitagliptin Phosphate (Januvia) 100 Mg Tab 100 MG PO QAM, TAB [Magnesium Tartrate] () 250 MG PO BID [Nasocort] () 2 SPRAYS INTNAS HS Admission Information HPI (per Admitting provider): Patient is a 68-year-old female who is here today for preoperative history and physical. She is scheduled to have an elective right total knee arthroplasty by Dr. Vivek Brito on February 06, 2018. She has been having ongoing right knee pain for many months and upwards of a year. Over the last year, her pain has progressively worsened. She has failed conservative treatment which has consisted of corticosteroid injections and viscosupplementation. She has pain in her right knee that is increased with activity. Her pain is also increased with weightbearing. She has decreasing activities of daily living due to pain in her right knee. She has limited range of motion and pain with range of motion of her right knee. Aggravating activities include walking, going up and down steps, pain with rest and sometimes night pain. She states that her pain radiates from her knee up into her hip. Prior treatments include nonsteroid anti-inflammatory drugs, corticosteroid injections and viscous supplementation. She also ambulates with the assistance of a cane as needed. Due to her failure of conservative treatment, she wishes to proceed with surgery. Risks and complications of the surgery were explained to the patient. Her surgery was scheduled. Physical Exam (per Admitting): General Appearance: WD/WN, no apparent distress Head: normocephalic, atraumatic Eyes: normal inspection, PERRL, EOMI ENT: normal ENT inspection, hearing grossly normal, TMs normal, pharynx normal Neck: supple, no adenopathy, no carotid bruits, trachea midline Respiratory/Chest: chest non-tender, lungs clear, normal breath sounds, no respiratory distress, no accessory muscle use Cardiovascular: regular rate, rhythm, no edema, no JVD, no murmur, normal peripheral pulses Abdomen/GI: normal bowel sounds, non tender, soft Extremities/Musculoskelatal: no calf tenderness, normal capillary refill, no pedal edema, non-tender, pelvis stable, + pertinent finding (Exam of right knee: Valgus alignment of both knees, left greater than right. MCL is intact. Her deformity is not passively correctable. Range of motion is 0-130 she has mild tenderness over the lateral joint line. No effusion. Normal sensation and normal motor strength throughout. She would independently do a straight leg raise.) Neurologic/Psych: no motor/sensory deficits, alert, normal mood/affect, oriented x 3 Skin: normal color, warm/dry Lymphatic: no adenopathy Hospital Course Patient is a 68-year-old female who underwent an elective right total knee arthroplasty on February 06, 2018 at [facility] by Dr. Vivek Brito. She tolerated the procedure well. Her surgery was done with spinal anesthesia and a peripheral nerve block. She was given 2 g of IV Ancef for surgical prophylaxis which was continued for 24 hours after surgery. Her postoperative x-rays done in the recovery room showed neutral alignment and a stable prosthesis. Her pain was controlled well after surgery. She was given the options of IV morphine, oxycodone, tramadol and Tylenol. She tolerated a regular type 2 diabetes diet during her inpatient stay. Glycemic control consult was placed for diabetic management. Her blood sugars were well controlled during her inpatient stay. She was allowed out of bed, weightbearing as tolerated right lower extremity with the assistance of a knee immobilizer and walker. Bedside exercises were encouraged. She was cautioned not to "overdo it". Therapy saw and evaluated her as well and she did well out of bed. She was deemed safe for home. 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 Postoperative day 2, her dressings were changed and her incision was clean, dry, and intact. New dressings were applied. He was ambulatory and her rheumatoid assistance of a walker. She did not develop any postoperative complications. She did develop acute blood loss anemia but no transfusions were necessary in her H&H remained stable during her inpatient stay. She was discharged to her home in stable condition on February 08, 2018. All questions were answered. Discharge instructions were provided. Total time spent on discharge = This includes examination of the patient, discharge planning, medication reconciliation, and communication with other providers. Discharge Instructions Discharge Instructions Date of Service February 07, 2018. Admission Reason for Admission: Right Knee Arthritis Discharge Discharge Diagnosis / Problem: Degenerative Joint disease right knee Discharge Goals Goal(s): Decrease discomfort, Improve function, Increase independence Activity Recommendations Activity Limitations: per Instructions/Follow-up section Weightbearing Status: Right weightbearing (as tolerated with assistance of a walker) . Instructions / Follow-Up Instructions / Follow-Up New Medicine: * You will likely be taking one or more of these medications: 1. Lovenox- You will be on Lovenox for 2-4 weeks after surgery to prevent blood clots. Do not take anti- inflammatory pills (Advil or Aleve) while on Lovenox. Aspirin, 81 mg is OK. 2. Percocet - Take, as directed, when you need it, every four to six hours to control your pain. 3. Colace & Senokot - Take to prevent constipation which can be caused by narcotics. These can be bought [id number] at the pharmacy 4. Tramadol - Take, as directed, when you need it, every 4-6 hours to control your pain. * The most common side effects of pain medicine and iron are nausea and constipation. If nausea or constipation is too much of a problem or if you have any questions about your new medicines or doses, call [facility] at . We will try to help you manage these issues. VERY IMPORTANT TO READ AND REVIEW" Blood Clots and Blood Thinning Medicine: * You are given Lovenox during the immediate post-operative period to lessen the risk of blood clots forming in your legs and/or lungs. Lovenox is usually given for 2-4 weeks after surgery. * The prescription is for 30 mg injections. Take twice daily at the same time every day. * You need to get your blood checked on Monday or as directed. It's a blood count to check your platelet count. A prescription is provided at discharge that you will give to your home health nurse. Physical Therapy: * Do your physical therapy at home. These are the exercises you learned while in the hospital (quad sets, leg raises, calf pumps, gluteal squeezes, knee bending, and heel props.) You should do these exercises 3-4 times per day. * You will either go to inpatient rehab ([facility]), home with Home Therapy and nursing or home with outpatient rehab. You should do rehab with the therapist 2-3 times per week. You should do therapy on your own daily. * You may bear full weight on your leg with crutches or walker unless otherwise advised. Home Exercise: * You were shown a series of exercises (heel props, heel slides, etc.) in the hospital. Do these exercises three to four times each day including the exercises you were shown in physical therapy. Walking: * You may be up for short periods of time. Standing and walking for 1-2 hours at a time is usually okay. You should not stand or walk for excessive periods of time as this may cause increased pain and swelling. SELF CARE INSTRUCTIONS AFTER TOTAL KNEE REPLACEMENT A. You may need to continue a physical therapy program after discharge from the hospital. There are several options available to you. Your doctor will assist you in selecting the best one for you. 1. An out-patient facility 2 to 3 times a week for therapy or home therapy. 2. Continue working on all exercises taught to you in the hospital. Your goals should be to increase bending of your knee to 90 degrees and beyond and to fully straighten your knee. B. Your therapist will notify you when you are able to progress from a walker to a cane. C. Wear TEDS as much as possible.~ They may be removed at night for laundering. D. Do not place a pillow behind your knee when resting. A pillow at your ankle is okay. E. Ice your knee 15-20 minutes every 2-3 hours and elevate it above the level of your heart. F. You may shower on the fourth day after surgery using regular soap and water. Do not submerge until the wound is completely healed (approximately 2 weeks ). Until the fourth day after surgery, cover the incision/bandage with a bag or plastic wrap. G. Anyone who is touching your surgical incision area should wash their hands and wear gloves. H. Keep your incision covered with gauze pads under the GEOVANNY hose until it is dry. VERY IMPORTANT TO READ AND REVIEW A. YOU WILL BE GIVEN AN ORDER AT DISCHARGE FOR PT/INR (BLOOD WORK). PLEASE HAVE THIS DONE INSTRUCTED. PLEASE CALL OUR OFFICE AFTER YOUR BLOODWORK IS COMPLETE SO WE CAN TRACK YOUR RESULTS. IF YOU ARE GOING TO OUTPATIENT PHYSICAL THERAPY, YOU WILL NEED TO GO TO OUTPATIENT TESTING TO HAVE IT DRAWN. B. There are a few signs you need to watch for after you are home. Call [facility] if you notice any of the followin. Increased severe knee pain. Some pain is expected especially when you exercise. 2. Increased swelling in your leg or knee; pain or swelling of the calf muscle in either lower leg. 3. Any fluid drainage from the incision. 4. Shortness of breath or chest pain. 5. Numbness and tingling in the surgical extremity C. Please call [facility] at if you have any concerns or questions about your operation or recovery. The doctor or his nurse will return your call promptly. D. Do not have any elective dental work or other elective procedures done for 6 weeks after your knee replacement. When you have any invasive procedure (dental cleaning, extraction, colonoscopy etc) performed, you will need to take antibiotics to prevent infection from developing in your artificial joint. Tell your other health care providers you have an artificial joint. My office will supply you with further information and the antibiotics. Call your doctor if: * Temperature above 101 degrees F. * Pain not relieved by pain medicine ordered. * Increased drainage or redness from incision. * Notify your doctor with any questions or concerns. Follow-up Visit: You will follow-up with Dr. Brito 10-14 days after surgery. The office number is . Your scheduled follow up visit with Dr. Brito on 02/19/18 at 12:45 p.m. Avoid all tobacco products. If you need help to stop smoking, call [place] at . This is a free call. Current Hospital Diet Patient's current hospital diet: Diabetes Type 2 Diet Discharge Diet Recommended Diet: Regular Diet, Diabetes Type 2 Diet Procedures Procedures Performed: Right Total Knee Arthroplasty Pending Studies Studies pending at discharge: no Laboratory Results Hemoglobin A1c Test 02/07/18 06:53 Range/Units Medical Emergencies . Who to Call and When: Medical Emergencies: If at any time you feel your situation is an emergency, please call 911 immediately. . Non-Emergent Contact Non-Emergency issues call your: Surgeon Call Non-Emergent contact if: temperature is above 101, your pain is not controlled, your pain is worsening, wound has increased drainage, wound has increased redness, wound has increased pain, you have any medication questions . "Provider Documentation" section prepared by Tanisha Sidhu. . [place] Drug Monitoring Program Search Results: patient reviewed within database, no issues identified
[2018-02-08] MEDS: SITAGLIPTIN 100 MG TAB PO SCH (12:42)
[2018-02-08] MEDS: HYDROCHLOROTHIAZIDE 25 MG TAB PO SCH (12:42)
[2018-02-08] MEDS: ENALAPRIL MALEATE 10 MG TAB PO SCH (12:42)
== END 2018-02-08 14:24 | disposition home health service (06) | DRG 470 ==
LOC: C.ACU 06:53 → C.3E 07:30 → ENRESERV 13:42
PROVIDERS: ADMIT Physical Medicine & Rehabilitation Sports Medicine; ATTEND Physical Medicine & Rehabilitation Sports Medicine
PROC: 0SRC0J9 Replacement of Right Knee Joint with Synthetic Substitute, Cemented, Open Approach (ICD-10-PCS; principal; 2018-02-06 09:30)
DX: M17.11 Unilateral primary osteoarthritis, right knee (principal); D62 Acute posthemorrhagic anemia; E11.9 Type 2 diabetes mellitus without complications; I10 Essential (primary) hypertension; E78.00 Pure hypercholesterolemia, unspecified; E66.9 Obesity, unspecified; Z68.32 Body mass index [BMI] 32.0-32.9, adult; Z98.890 Other specified postprocedural states; Z79.4 Long term (current) use of insulin; Z79.82 Long term (current) use of aspirin; Z79.899 Other long term (current) drug therapy; Z88.0 Allergy status to penicillin; Z88.5 Allergy status to narcotic agent; Z82.49 Family history of ischemic heart disease and other diseases of the circulatory system; Z82.3 Family history of stroke; Z83.3 Family history of diabetes mellitus; Z83.49 Family history of other endocrine, nutritional and metabolic diseases

== ENCOUNTER 2019-06-11 04:55 | Inpatient (IN) ==
--- NOTE | 2019-04-23 13:38 | PAT Medication Instructions ---
Medication Instructions Date of Service April 23, 2019 Home Medications Januvia 100 mg PO DAILY Lantus U-100 Insulin 32 unit SUBCUT DAILY aspirin Aspir-81 81 mg PO QPM atorvastatin 20 mg PO QPM coQ10 (ubiquinol) 100 mg PO DAILY fexofenadine 180 mg PO DAILY glyburide 5 mg PO BID hydrochlorothiazide 25 mg PO DAILY metformin 1,000 mg PO BID ramipril 10 mg PO DAILY triamcinolone acetonide [Nasacort] 2 spray INTRANASAL QPM calcium carbonate [Tums Ultra] 400 mg PO HS PRN multivitamin 1 tab PO DAILY STOP taking 2 weeks before surgery (or as soon as possible if surgery is within 2 weeks) coQ10 (ubiquinol) 100 mg PO DAILY DO NOT take the morning of surgery Januvia 100 mg PO DAILY fexofenadine 180 mg PO DAILY glyburide 5 mg PO BID hydrochlorothiazide 25 mg PO DAILY metformin 1,000 mg PO BID ramipril 10 mg PO DAILY multivitamin 1 tab PO DAILY Take evening before surgery aspirin Aspir-81 81 mg PO QPM atorvastatin 20 mg PO QPM glyburide 5 mg PO BID metformin 1,000 mg PO BID triamcinolone acetonide [Nasacort] 2 spray INTRANASAL QPM calcium carbonate [Tums Ultra] 400 mg PO HS PRN (if needed) Insulin Dependent Diabetic Patients * Test your blood sugar the morning of surgery * If Blood Sugar is GREATER THAN 150, take HALF of your regular dose of: Lantus U-100 Insulin take 16 units * If Blood Sugar is LESS THAN 150, DO NOT TAKE ANY: Lantus U-100 Insulin Other Notes If you have any questions please call us at [phone] or [phone] or [phone] or [phone]
--- NOTE | 2019-04-24 08:47 | Anesthesiology Consultation ---
Date of Service April 24, 2019 Assessment & Plan (1) Encounter for pre-operative examination: Chart Review Chart Review: Acceptable Risk for Surgery and Patient seen in Pre Admission Testing Teaching & Discussion Pre-Anesthesia Teaching/Discussion Notes: Instructed NPO after midnight before surgery,except medications with 15 cc of water. Medication instructions provided according to the PAT guidelines. History Surgery Operation Date: 06/11/19 10:40 Proposed Procedures p Right Total Hip Replacement - Yon Fam MD Height/Weight Height: 6 ft Weight: 106.2 kg Allergies Allergy/AdvReac Type Severity Reaction Status Date / Time codeine Allergy Unknown ITCHING Verified 04/17/19 09:15 morphine Allergy Unknown RASH Verified 04/17/19 09:15 amoxicillin AdvReac Unknown GI UPSET Verified 04/17/19 09:15 Medications Home Medications Medication Instructions Recorded Confirmed Last Taken Januvia 100 mg PO DAILY 05/31/18 04/17/19 06/25/18 18:00 Lantus U-100 Insulin 32 unit SUBCUT DAILY 05/31/18 04/17/19 04/16/19 aspirin [Aspir-81] 81 mg PO QPM 05/31/18 04/17/19 04/16/19 atorvastatin 20 mg PO QPM 05/31/18 04/17/19 04/16/19 coQ10 (ubiquinol) 100 mg PO DAILY 05/31/18 04/17/19 06/12/18 fexofenadine 180 mg PO DAILY 05/31/18 04/17/19 06/25/18 18:00 glyburide 5 mg PO BID 05/31/18 04/17/19 04/16/19 hydrochlorothiazide 25 mg PO DAILY 05/31/18 04/17/19 06/25/18 14:00 metformin 1,000 mg PO BID 05/31/18 04/17/19 04/16/19 ramipril 10 mg PO DAILY 05/31/18 04/17/19 04/16/19 triamcinolone acetonide [Nasacort] 2 spray INTRANASAL QPM 05/31/18 04/17/19 04/16/19 calcium carbonate [Tums Ultra] 400 mg PO HS PRN 06/05/18 04/17/19 06/25/18 21:30 multivitamin 1 tab PO DAILY 06/26/18 04/17/19 06/25/18 18:00 Past Medical History Medical History Diabetes mellitus, type 2 IDDM GERD (gastroesophageal reflux disease) controlled Hyperlipidemia Hypertension Obesity Osteoarthritis Premature ventricular beat HX (2017) s/p unremarkable cardiac workup including stress echo; asymptomatic Exercise / Class Metabolic Activity II 4-5 Yardwork/Stairs/Walk up hill (uses cane/walker prn hip pain; no chest pain or sob with 1 flight of stairs) Past Family History Family History Brother Family history of diabetes mellitus Myocardial infarction Stroke Grandmother Family history of diabetes mellitus Grandfather Family history of diabetes mellitus Mother Hx of CABG Father Metabolic syndrome Myocardial infarction Past Surgical History Surgical History History of section History of total knee replacement right; left TKA: 06/26/18: SAB at L3-L4 + PNB at [facility] Hx of arthroscopy of right knee Past Anesthesia History No Hx of Anesthesia Complications and No Family Hx of Anesthesia Complications History of PONV No Hx of PONV and No Hx of Motion Sickness Social History Smoking Status: Never smoker Do You Dip or Chew Tobacco: No Hx Alcohol Use: No Hx Substance Use: No substance use type: does not use Review of Systems Reflux controlled. Patient denies chest pain, shortness of breath, dyspnea on exertion, cough, wheezing, palpitations. Physical Exam Vital Signs VITALS BP 126/80 P 86 TEMP 97.5 SP02 99%RA RESP 18 PHYSICAL Full neck and c-spine range of motion. Full TMJ range of motion. TMD 3 finger breaths Mallampati Score 2 Dentition: intact, several crowns all over, permanent bridge upper left side Lungs: clear throughout to auscultation Cardiac: regular rate and rhythm, no murmurs noted Spine: normal Carotid arteries: negative bruit Extremities: no edema Testing Laboratory Results 04/24/19 09:18 04/24/19 09:18 PT 10.3 Seconds (9.0-12.0) 04/24/19 09:18 INR 1.0 (0.9-1.1) 04/24/19 09:18 APTT 25.5 Seconds (21.0-31.0) 04/24/19 09:18 Hemoglobin A1c 6.4 % (4.5-5.6) H 04/24/19 09:18 Blood Type A Positive 04/24/19 09:18 Antibody Screen NEGATIVE 04/24/19 09:18 Electrocardiogram Date: 04/24/19 Findings: + NSR @ (76) Chest X-Ray Date: 04/24/19 Cardiomediastinal and hilar silhouettes are within normal limits. Mild pleural thickening of the lung apices. Mild chronic interstitial opacities of the left lung base suggestive of scarring/atelectasis. There is no pneumothorax, pleural effusion, focal airspace consolidation or overt pulmonary edema. Patient is rotated on the lateral view. Degenerative changes of the shoulders and spine. Stress Test Date: 12/25/17 Type: DSE Stress ECHO/EKG negative for inducible ischemia. 109% MPHR. Grade I DD. LVEF 60- 64%. No significant valvular disease. Borderline cLV wall thickness increased.
--- NOTE | 2019-04-24 09:57 | XRay Report ---
XR chest Pre-admission PA/Lat HISTORY: 69 years-old Female pat preoperative exam. No acute chest complaints COMPARISON: Chest radiograph 01/24/2018 TECHNIQUE: PA and lateral views of the chest FINDINGS: Cardiomediastinal and hilar silhouettes are within normal limits. Mild pleural thickening of the lung apices. Mild chronic interstitial opacities of the left lung base suggestive of scarring/atelectasis . There is no pneumothorax, pleural effusion, focal airspace consolidation or overt pulmonary edema. Patient is rotated on the lateral view. Degenerative changes of the shoulders and spine. IMPRESSION: No acute process. The above report was generated using voice recognition software. It may contain grammatical, syntax o r spelling errors. Electronically signed by: Hao Rodriguez M.D. 04/24/2019 9:56 AM
[2019-04-24 10:44] LABS: Basophils # (auto) 0.02 K/uL (0-0.2); Basophils % (auto) 0.2 %; Eosinophils # (auto) 0.16 K/uL (0-0.5); Eosinophils % (auto) 1.9 %; Hematocrit (blood only) 42.7 % (37-47); Hemoglobin 14.4 g/dL (12.0-16.0); Immature Granulocytes # (auto) 0.02 K/uL (0.00-0.02); Immature Granulocytes % (auto) 0.2 %; Lymphocytes # (auto) 1.75 K/uL (1.2-3.4); Lymphocytes % (auto) 20.5 %; Mean Corpuscular Hemoglobin 30.5 pg (25-34); Mean Corpuscular Hgb Conc 33.7 g/dL (32-36); Mean Corpuscular Volume 90.5 fL (80-100); Mean Platelet Volume 9.7 fL (7.4-10.4); Monocytes # (auto) 0.74 K/uL (0.11-0.59); Monocytes % (auto) 8.7 %; Neutrophils # (auto) 5.85 K/uL (1.4-6.5); Neutrophils % (auto) 68.5 %; Platelet Count 300 K/uL (130-400); RDW Standard Deviation 43.4 fL (36.4-46.3); Red Blood Count 4.72 M/uL (4.2-5.4); White Blood Count 8.54 K/uL (4.8-10.8)
[2019-04-24 10:50] LABS: BUN Creatinine Ratio 27.1 (10-20); Blood Urea Nitrogen 22 mg/dl (7-18); Calcium 9.4 mg/dl (8.5-10.1); Carbon Dioxide 28 mmol/L (21-32); Chloride 104 mmol/L (98-107); Creatinine Clr Calc Pharmacy 86.8 ml/min; Est GFR (African American) 84.7; Est GFR (Non-African American) 73.1; Glucose 145 mg/dl (70-99); Potassium 3.9 mmol/L (3.5-5.1); Sodium 138 mmol/L (136-145)
[2019-04-24 10:53] LABS: C Reactive Protein < 0.29 mg/dl (0-0.29)
[2019-04-24 10:55] LABS: Estimated Average Glucose 137 mg/dl; Hemoglobin A1C 6.4 % (4.5-5.6); Partial Thromboplastin Ratio 0.9; Partial Thromboplastin Time 25.5 Seconds (21.0-31.0); Prothrombin Time 10.3 Seconds (9.0-12.0)
--- NOTE | 2019-06-07 21:31 | History and Physical Report ---
DATE OF ADMISSION: 06/11/2019 CHIEF COMPLAINT: Right hip pain. HISTORY OF PRESENT ILLNESS: This is a 69-year-old female who presents for surgical treatment of her right hip. She has a several year history of increasing right hip pain and discomfort, describes it has gotten worse over time. She has seen Dr. Brito as he did both of her knee replacements in the past 2 years and apparently he is not doing hip surgery. Hip has been bothering for a couple years. It has gradually gotten worse over time. She uses a cane to get around. She described groin pain. Her walking tolerance is limited. She has difficulty doing stairs and difficulty putting her shoes and socks on. She did have an intra-articular hip joint injection which provided temporary relief, but nothing long lasting. She now like to proceed with surgery. She has been through therapy as well. Therapy actually made things worse. PAST MEDICAL HISTORY: 1. Diabetes with hemoglobin A1c of 6.4. 2. Hypertension. 3. Gastroesophageal reflux disease. 4. Mild obesity, BMI 32. PAST SURGICAL HISTORY: Includes: 1. Right knee replacement done years ago by Dr. Brito. 2. Left knee replacement done year and a half ago by Dr. Brito. 3. . ALLERGIES: BIAXIN WHICH CAUSED GI UPSET. CURRENT MEDICINES: Include: 1. Lantus insulin 25 units a day. 2. Metformin 1000 mg twice a day. 3. Glyburide 5 mg a day. 4. Ramipril 10 mg a day. 5. Hydrochlorothiazide 25 mg. 6. Januvia 100 mg. 7. Aspirin 81 mg a day. SOCIAL HISTORY: A 69-year-old white female. She works part-time as an accountant bookkeeper. She is . Does not smoke. FAMILY HISTORY: Noncontributory. REVIEW OF SYSTEMS: Significant for diabetes, pretty well controlled. Denies any chest pain or shortness of breath. No history of DVT or PE. No known bleeding problems. PHYSICAL EXAMINATION: GENERAL: Shows a pleasant, middle-aged female. Looks to be in pretty good health. HEENT: Benign. NECK: Supple, no lymphadenopathy. LUNGS: Clear to auscultation. HEART: Has a regular rate and rhythm. ABDOMEN: Soft, nontender, nondistended. EXTREMITIES: Grossly neurovascularly intact except as follows: Examination of the right hip reveals patient walks with a markedly antalgic gait. She walks with a significant flexion contracture of her hip. She uses a cane. She has pain with any type of hip motion. Internal rotation to neutral. External rotation 25 degrees. Negative straight leg raise. Her knee incision is well healed without signs of problems. This right leg does seem a little bit longer than the left leg clinically about 0.5 cm. X-RAYS: X-ray of the right hip reviewed. Shows advanced right hip DJD. She has complete loss of her joint space. She has cystic change of the femoral head and acetabulum. ASSESSMENT: A 69-year-old white female status post bilateral knee replacements with advanced right hip degenerative joint disease it is really affecting her quality of life. She failed conservative treatment. She would like to have her right hip fixed. Interestingly, this right leg seems clinically a little bit longer than the left. PLAN: We are going to proceed with right total hip replacement at the patient's request. The risks and benefits of this procedure were explained to the patient including but not limited to DVT, PE, , infection, neurological injury, vascular injury, bleeding problem, pain, limited range of motion, stiffness, failure to relieve symptoms, incomplete relief of symptoms, need for further surgery in the future, fracture, leg length inequality, nerve palsy, dislocation, need for blood transfusion, leg length inequality, etc. The patient understands and desires to proceed. Informed consent was obtained. I did talk to her specifically about leg length issues. We will do the best we can and make it same as equal as possible, but it is hard to shorten the leg with a hip replacement surgery without risking dislocation. We will try to do we can to at least keep about what she has now. We did talk to her about holding her metformin the morning of surgery along with the ramipril. She is planning to be discharged to home using [facility] home health program. EDIE
[2019-06-11] MEDS ORDERED: ACETAMINOPHEN 500 MG TAB PO SCH (06:00)
[2019-06-11] MEDS ORDERED: LR 500ML BOLUS, THEN 15ML/HR IV SCH (06:00)
[2019-06-11] MEDS ORDERED: FAMOTIDINE 20 MG TAB PO SCH (06:00)
[2019-06-11] MEDS ORDERED: LR 60ML/HR IV SCH (06:00)
[2019-06-11] MEDS ORDERED: METOCLOPRAMIDE HCL 10 MG TABLET PO SCH (06:00)
[2019-06-11] MEDS ORDERED: GABAPENTIN 300 MG CAP PO SCH (06:00)
[2019-06-11] MEDS ORDERED: CEFAZOLIN 2000MG 2,000 MG/15 ML SYR IV SCH (06:00)
[2019-06-11] MEDS ORDERED: TRANEXAMIC ACID 1,000 MG **IV Pre-op IV SCH (06:00)
[2019-06-11] MEDS ORDERED: BUPIVACAINE 0.5 % 5 MG/1 ML PF 10ML VIAL ONE (06:23)
[2019-06-11] MEDS ORDERED: BACITRACIN INJ 50,000 UNIT VIAL ONE (06:31)
[2019-06-11] MEDS ORDERED: BUPIVACAINE/EPINEPHRINE 0.5% MPF 1:200,000 30 ML VIAL ONE (06:31)
[2019-06-11] MEDS ORDERED: MIDAZOLAM HCL 1 MG/ML 2ML VIAL ONE (06:43)
[2019-06-11] MEDS ORDERED: PROPOFOL IV EMULSION 10 MG/ML 20 ML VIAL IV ONE (06:43)
[2019-06-11] MEDS ORDERED: fentaNYL citrate 100 MCG/2 ML VIAL ONE (06:43)
[2019-06-11] MEDS ORDERED: ePHEDrine sulfate 50 MG/ML AMP IV PRN (06:46)
[2019-06-11] MEDS ORDERED: ATROPINE SULFATE 0.1 MG/ML 10ML SYR IV PRN (06:46)
[2019-06-11] MEDS ORDERED: HYDROmorphone INJ 1 MG/ML SYRINGE IV PRN (06:46)
--- NOTE | 2019-06-11 06:53 | History & Physical Bridge Note ---
Date of Service June 11, 2019 History & Physical Bridge Note I have examined the patient, reviewed the History & Physical and in the interval since the performance of the History & Physical I have noted the following changes of clinical significance: no changes noted
[2019-06-11] MEDS ORDERED: ePHEDrine sulfate 50 MG/ML SYR ONE (07:32)
[2019-06-11] MEDS ORDERED: PHENYLEPHRINE 100MCG/ML 5ML SYR ONE (07:32)
[2019-06-11] MEDS ORDERED: HYDROmorphone INJ 2 MG/ML SYR/VIAL ONE (08:10)
--- NOTE | 2019-06-11 08:42 | Post Operative Brief Note ---
PG Immediate Post Op with CF Date of Surgery June 11, 2019 Pre & Post Diagnosis Operation Date: 06/11/19 07:00 Pre-Op Diagnosis: Right Hip Degenerative Joint Disease Post-Op Diagnosis: Right Hip Degenerative Joint Disease + Chronic Hip Abductor Avulsion Procedure Operation Date: 06/11/19 07:00 Actual Procedures p Right Total Hip Replacement(Right) - Yon Fam MD Surgeon Right Total Hip Replacement with Hip Abductor Repair. Yon Fam MD Recorder Helper Gravity Prospecting Miladis, PAC Estimated Blood Loss 300 Findings Consistent with Post-Op Diagnosis Fluids 800 cc Specimens Specimen Description: Permanent specimen A: right femoral head Drains Houser Catheter (16fr houser catheter placed by Deacon Redding PA-C, without difficulty; houser demonstrates concentrated yellow urine. Output measured and recorded by anesthesia.) Anesthesia Type Spinal MAC Complications none Disposition Accompanied Patient To Recovery: Yes Disposition: Recovery Room
--- NOTE | 2019-06-11 09:06 | XRay Report ---
SINGLE VIEW PELVIS; SINGLE VIEW RIGHT HIP CLINICAL HISTORY: Postoperative examination. FINDINGS: An AP portable view of the hips and pelvis with a crosstable lateral portable view of the r ight hip are obtained. A bipolar right hip arthroplasty is in near-anatomic alignment at least 2 tony ical lag screws transfix the acetabular cup. No acute fracture is identified. There are expected post operative changes overlying the right hip including skin clips, subcutaneous gas, and soft tissue swe lling. Mild/moderate arthritic changes noted in the left hip. A Harris catheter is in place. Pelvic ph leboliths are observed. IMPRESSION: Expected postoperative findings status post right hip arthroplasty. No acute fracture is seen. Electronically signed by: Jus Villagran M.D. 06/11/2019 9:04 AM
--- NOTE | 2019-06-11 09:28 | Operative Report ---
DATE OF OPERATION: 06/11/2019 SURGEON: Yon Fam MD MANAGER PRODUCTION: TONY Mariano PREOPERATIVE DIAGNOSIS: Right hip degenerative joint disease. POSTOPERATIVE DIAGNOSES: 1. Right hip degenerative joint disease. 2. Right chronic hip abductor avulsion. PROCEDURES PERFORMED: 1. Right uncemented ceramic on highly cross-linked polyethylene total hip arthroplasty. 2. Right chronic hip abductor repair. COMPLICATIONS: None. ESTIMATED BLOOD LOSS: 300 mL. FLUID REPLACEMENT: 800 mL crystalloid fluid replacement. ANESTHESIA: Spinal. DRAINS: None. SPECIMENS: Right femoral head sent for pathology. OPERATIVE INDICATIONS: The patient is a 69-year-old female who has had a several-year history of gradually increasing progressive discomfort and pain in her right hip. She failed all conservative treatment. X-rays revealed advanced right hip DJD. She elected to proceed with total hip arthroplasty. OPERATIVE FINDINGS: Operative findings were advanced right hip DJD. She had grade 4 [id number] disease of the femoral head and acetabulum. Some small anterior acetabular osteophytes. Moderate-sized joint effusion. OPERATIVE IMPLANTS: Operative implants consisted of: 1. A Biomet G7 size 56 mm acetabular shell. 2. A 6.5 cancellous acetabular screws, 1 at 35 mm in length and 1 at 25 mm in length. 3. An apex hole eliminator. 4. A highly cross-linked polyethylene liner with 56 mm outer diameter, 36 mm inner diameter with bowman placed inferior and posterior. 5. A DePuy Corail size 12 KLA femoral stem. 6. A +8.5/36 mm ceramic articular ball. OPERATIVE PROCEDURE: The patient was taken to the operating room, identified and placed on the operating table in supine position. All contact areas were appropriately padded. IV antibiotics were provided by anesthesia team. A spinal anesthetic had been implemented in the holding area. Harris catheter was placed in sterile fashion. The patient was then placed in the left lateral decubitus position. An axillary roll was placed. Stlberg hip positioner was used for positioning. The right hip and leg were then prepped and draped in usual sterile fashion. A posterolateral approach to the right hip was then performed through a curvilinear incision centered over the greater trochanter. Sharp dissection was carried through subcutaneous tissue down to the level of the IT band and gluteal fascia. The IT band and gluteal fascia were incised longitudinally in line with skin incision. The underlying greater trochanteric bursa was excised. It was a chronic avulsion of the hip abductors with a fairly bald trochanter. The piriformis and external rotators were then tagged and taken off the posterior aspect of the hip joint capsule. Great care was taken throughout the procedure to protect the sciatic nerve at all times. Posterior capsulotomy was then performed leaving a large flap for later repair. Hip was internally rotated and dislocated. Femoral neck osteotomy was then made with the final cut about 9-10 mm above the lesser trochanter. Femoral head was removed and sent for pathology. The femur was retracted anteriorly. Attention was then drawn to the acetabulum. The acetabulum labrum was excised. The pulvinar fat was excised. Sequential reaming of the acetabulum was then performed beginning with size 45 and progressing up to 55. I did just touch the entrance with a 56 reamer. A 56 mm Biomet G7 acetabular shell was then placed in about 40 degrees of lateral opening and 20 degrees of anteversion. It was fixed with two 6.5 cancellous acetabular screws. An anterior osteophyte was removed. A trial liner was placed. Attention was then drawn to the femur. The proximal femur was entered with a cookie cutter followed by canal finder. I then broached beginning with a size 8 and progressing up to a 12. We got excellent fit at 12. I then used a calcar reamer to smoothen off the calcar. I then trialed the hip. With the +5 articular ball, the hip was stable, but there was quite a lot of soft tissue laxity with more than a centimeter shuck. Therefore, I elected to use a +8.5 head in order to maximize her stability and soft tissue tension, especially concerning her hip abductor avulsion. Hip was fully stable in full extension and external rotation, flexion to 90 degrees, internal rotation to 60+ degrees. I elected to place these implants. We did place a bowman inferior and posterior to maximize stability in flexion. All trial implants were removed. An apex hole eliminator was placed. A highly cross-linked polyethylene liner with bowman placed inferior and posterior was then placed. A DePuy Corail size 12 KLA femoral stem was impacted in position. I could not quite get this whole way down to the calcar cut. We did use the 8.5/36 mm ceramic articular ball. Hip was located and once again found to be stable. Attention was then drawn toward closing. The wound was irrigated with copious amounts of pulsatile lavage solution. I did inject locally with 60 mL of 0.5% Marcaine with epinephrine. The posterior capsule and external rotators were then repaired through drill holes in the posterior trochanter with #2 Ti-Cron suture. I then used the cautery to scuff up the greater trochanter. I placed a single JuggerKnot anchor in the trochanter. The first one pulled right out. I did place the second one a bit distal and posterior and a little bit better bone. This one stayed fast. I then fed these through the anterior and the superior hip abductors and tied these down. The IT band and gluteal fascia were then closed with #1 PDS suture in running fashion. Subcutaneous tissues were closed with 2 layers with the deep layer #2 Vicryl suture in a buried interrupted fashion and then the subcutaneous tissue with 2-0 Dexon suture in a buried interrupted fashion. Skin was then closed with skin dipak. Leg was then cleaned, dried and a sterile dressing of Xeroform, 4 x 4's, ABD pad and foam tape was applied. The patient was then transferred to the recovery room in stable condition. The patient tolerated the procedure well with no complication. All needle and sponge counts were correct at the end of the operation. I attest to the content of the Intraoperative Record and any orders documented therein. Any exception s are noted below.
[2019-06-11] MEDS ORDERED: PHARMACY GLYCEMIC MGMT CONSULT STA (09:52)
[2019-06-11] MEDS ORDERED: MULTIVITAMIN TAB PO SCH (09:52)
[2019-06-11] MEDS ORDERED: NON-FORMULARY MEDICATION (Coq10 (Ubiquinol) 100 MG) PO SCH (09:52)
[2019-06-11] MEDS ORDERED: METOCLOPRAMIDE HCL INJ 5 MG/ML 2 ML VIAL IV PRN (09:52)
[2019-06-11] MEDS ORDERED: SITAGLIPTIN PHOSPHATE 100 MG TAB PO SCH (09:52)
[2019-06-11] MEDS ORDERED: DEXTROSE 50% 50 ML SYRINGE IV PRN ×2 (09:52→10:45)
[2019-06-11] MEDS ORDERED: CARBOHYDRATES FOR HYPOGLYCEMIA PO PRN ×2 (09:52→10:45)
[2019-06-11] MEDS ORDERED: BISACODYL 10 MG SUPP PR PRN (09:52)
[2019-06-11] MEDS ORDERED: MAGNESIUM HYDROXIDE SUSP 30 ML UDC PO PRN (09:52)
[2019-06-11] MEDS ORDERED: GLUCAGON FOR INJ 1 MG VIAL SQ PRN (09:52)
[2019-06-11] MEDS ORDERED: TRAMADOL HCL 50 MG TABLET PO PRN (09:52)
[2019-06-11] MEDS ORDERED: CALCIUM CARBONATE 500 MG CHEWABLE TAB PO PRN (09:52)
[2019-06-11] MEDS ORDERED: ONDANSETRON INJ 2 MG/ML 2 ML VIAL IV PRN (09:52)
[2019-06-11] MEDS ORDERED: HYDROmorphone INJ 0.5 MG/0.5 ML SYR IV PRN (09:52)
[2019-06-11] MEDS ORDERED: glyBURIDE 5 MG TAB PO SCH (09:52)
[2019-06-11] MEDS ORDERED: GLUCOSE 40% GEL 15 GM TUBE PO PRN ×2 (09:52→10:45)
[2019-06-11] MEDS ORDERED: NALOXONE HCL 0.4 MG/1 ML VIAL/CARP IV PRN (09:52)
[2019-06-11] MEDS ORDERED: GLUCOSE 10 TABS/TUBE PO PRN ×2 (09:52→10:45)
[2019-06-11] MEDS: SODIUM CHLORIDE 0.9% 1000ML 1,000 ML IV SCH ×3 (10:15→22:22)
[2019-06-11] MEDS ORDERED: PHARMACY GLYCEMIC MGMT CONSULT PRN (10:29)
[2019-06-11] MEDS ORDERED: GLUCAGON FOR INJ 1 MG VIAL IM PRN (10:45)
--- NOTE | 2019-06-11 11:20 | Pharmacy Report ---
Glycemic Control Consultation - Date of Service June 11, 2019 - Scope Scope: Glycemic Pharmacist consulted by Dr Fam on 06/11/19 for glycemic control and to write orders per [facility] inpatient glycemic control protocol - Objective Weight: 106.912 kg Accuchecks BSG (last 24hrs): 06/11/19 06/11/19 05:20 08:54 POC Glucose 168 H 213 H HbA1c: Hemoglobin A1c 6.4 % (4.5-5.6) H 04/24/19 09:18 - Recent Pertinent Medications Outpatient Anti-diabetic Regimen: * Lantus 32 units SC daily (usually takes dose between 3-5 pm) * Metformin 1 g PO BID * Sitagliptin 100 mg PO daily * Glyburide 5 mg PO BID * A1c = 6.4 % (04/24/19) - Assessment & Plan Assessment & Plan: ASSESSMENT: * Patient is POD #0 s/p right total hip replacement * PMH includes type 2 diabetes, obesity, hypertension, and GERD * Baseline A1c indicates good glycemic control with once daily Lantus and PO antidiabetic agents * Postop BSG is 228 mg/dL * No perioperative steroids given PLAN FOR INPATIENT GLYCEMIC CONTROL: * Holding outpatient oral diabetes medications * May consider addition prior to discharge * Basal insulin - continue home Lantus (will give today's dose with lunch given elevated BSG postop) * Lantus 32 units SQ daily * Bolus insulin * NovoLog per scale ACHS or Q6hrs while NPO * Goal Range: Low 110 mg/dL - High 140 mg/dL * Correction Factor: 20 mg/dL/unit * Nutritional / Prandial insulin per carb ratio of 1 unit per 7 grams CHO consumed * Please note that the plan above was derived based on current level of insulin resistance and hospital stress. These recommendations are appropriate for inpatient admission only. Plan of care upon discharge will need to be reassessed to avoid potential outpatient hypo/hyperglycemia. Thank you.
[2019-06-11] MEDS ORDERED: INSULIN GLARGINE SOLOSTAR 100 UNITS/ML 3 ML PEN SC SCH (11:30)
[2019-06-11] MEDS: KETOROLAC TROMETHAMINE 15 MG/ML VIAL IV SCH ×3 (11:45→22:24)
[2019-06-11] MEDS: MULTIVITAMIN TAB PO SCH (11:45)
[2019-06-11] MEDS: hydroCHLOROthiazide 25 MG TAB PO SCH (11:45)
[2019-06-11] MEDS: FEXOFENADINE HCL 180 MG TAB PO SCH (11:45)
[2019-06-11] MEDS: ENALAPRIL MALEATE 10 MG TAB PO SCH (11:46)
[2019-06-11] MEDS: ASPIRIN 325 MG ECTAB PO SCH ×2 (11:46→20:58)
--- NOTE | 2019-06-11 11:46 | Progress Note ---
DATE: 06/11/2019 SUBJECTIVE: A 69-year-old white female postop from a right hip replacement. She is doing well. Just feels tired. No chest pain or shortness of breath. Not having any hip pain yet. OBJECTIVE: VITAL SIGNS: Temperature 36.4. Vital signs stable. GENERAL: Pleasant elderly female. She was sleeping when I visited her today. I had to wake her and she was easily arousable. LUNGS: Clear to auscultation. HEART: Has a regular rate and rhythm. ABDOMEN: Soft, nontender, nondistended. EXTREMITIES: Grossly neurovascularly intact except as follows: Examination of the right hip reveals leg lengths to be equal. Hip is located. Thigh is soft and supple. Dressing is clean, dry and intact. She can dorsiflex and plantarflex her foot appropriately. X-RAYS: X-ray of the right hip from recovery room reviewed. It shows right uncemented total hip arthroplasty. Components looked to be in good position. No signs of problems. ASSESSMENT: A 69-year-old white female postop from a right hip replacement, doing well. Pain is controlled. She is neurologically intact. Hip is located. PLAN: 1. DVT prophylaxis including thigh-high TEDs, SCDs, and aspirin twice a day. 2. PT/OT. Weight bear as tolerated. Right total hip protocol. 3. Pain control, doing well with current pain regimen. 4. IV antibiotics x24 hours. 5. Diabetes. Will continue insulin sliding scale coverage. 6. Disposition: She is hoping to be discharged home with some home health once adequately recovered and stable.
--- NOTE | 2019-06-11 11:57 | Anesthesiology Progress Note ---
Date of Service June 11, 2019 Anesthesia Post Procedure Vital Signs Vital Signs: Temp Pulse Pulse Resp BP BP Pulse Ox 06/11/19 11:43 36.2 C L 95 H 16 122/76 96 06/11/19 11:03 36.4 C L 91 H 16 141/57 H 97 06/11/19 10:19 36.5 C 87 15 150/81 H 97 06/11/19 09:45 36.5 C 98 H 16 159/82 H 97 06/11/19 09:30 36.7 C 82 17 148/79 H 98 06/11/19 09:20 36.7 C 88 15 131/80 98 06/11/19 09:10 36.7 C 81 14 135/64 98 06/11/19 09:00 93 H 14 140/74 96 06/11/19 08:50 90 15 126/67 98 06/11/19 08:43 36.8 C 97 H 13 110/71 94 06/11/19 05:30 36.6 C 94 H 18 165/74 H 99 Pain Intensity Right Hip: Pain Intensity: 2 Transfer of Care Handoff Completed per policy Notes Mental Status: alert / awake / arousable Patient Amnestic to Procedure: Yes Nausea / Vomiting: adequately controlled Pain: adequately controlled Airway Patency, RR, SpO2: stable & adequate BP & HR: stable & adequate Hydration State: stable & adequate Anesthetic Complications: no major complications apparent and Pt Satisfied with anesthetic care
[2019-06-11] MEDS: INSULIN GLARGINE SOLOSTAR 100 UNITS/ML 3 ML PEN SC SCH (13:24)
[2019-06-11] MEDS: INSULIN ASPART 100 UNITS/ML 3 ML PEN SC SCH ×3 (13:26→20:55)
[2019-06-11] MEDS: ACETAMINOPHEN 500 MG TAB PO SCH ×2 (13:27→21:00)
[2019-06-11] MEDS ORDERED: INFLUENZA ADMINISTRATION CHARGE ONE (14:00)
[2019-06-11] MEDS ORDERED: INFLUENZA VIRUS QUAD VACCINE 0.5 ML SYR IM ONE (14:00)
[2019-06-11] MEDS ORDERED: TRANEXAMIC ACID 1,000 MG in 0.9 % SODIUM CHLORIDE 100 ML IV SCH (14:43)
[2019-06-11] MEDS: CEFAZOLIN 2000MG 2,000 MG/15 ML SYR IV SCH ×2 (15:35→22:24)
[2019-06-11] MEDS: FERROUS GLUCONATE 324 MG TAB PO SCH (17:36)
[2019-06-11] MEDS: TRIAMCINOLONE ACET NASAL SPRAY 10.8ML BTL NAE SCH (20:58)
[2019-06-11] MEDS: DOCUSATE SODIUM 100 MG CAP PO SCH (20:58)
[2019-06-11] MEDS: SENNA 8.6 MG TAB PO SCH (20:58)
[2019-06-11] MEDS: ATORVASTATIN 20 MG TAB PO SCH (20:58)
[2019-06-12] MEDS: ACETAMINOPHEN 500 MG TAB PO SCH ×3 (05:29→21:41)
[2019-06-12] MEDS: KETOROLAC TROMETHAMINE 15 MG/ML VIAL IV SCH ×4 (05:30→22:09)
[2019-06-12 06:24] LABS: Basophils # (auto) 0.02 K/uL (0-0.2); Basophils % (auto) 0.2 %; Eosinophils # (auto) 0.07 K/uL (0-0.5); Eosinophils % (auto) 0.8 %; Hematocrit (blood only) 33.5 % (37-47); Hemoglobin 11.3 g/dL (12.0-16.0); Immature Granulocytes # (auto) 0.01 K/uL (0.00-0.02); Immature Granulocytes % (auto) 0.1 %; Lymphocytes # (auto) 0.93 K/uL (1.2-3.4); Lymphocytes % (auto) 10.7 %; Mean Corpuscular Hemoglobin 30.3 pg (25-34); Mean Corpuscular Hgb Conc 33.7 g/dL (32-36); Mean Corpuscular Volume 89.8 fL (80-100); Mean Platelet Volume 9.5 fL (7.4-10.4); Monocytes # (auto) 1.09 K/uL (0.11-0.59); Monocytes % (auto) 12.5 %; Neutrophils # (auto) 6.59 K/uL (1.4-6.5); Neutrophils % (auto) 75.7 %; Platelet Count 186 K/uL (130-400); RDW Coefficient of Variation 13.1 % (11.5-14.5); RDW Standard Deviation 42.9 fL (36.4-46.3); Red Blood Count 3.73 M/uL (4.2-5.4); White Blood Count 8.71 K/uL (4.8-10.8)
[2019-06-12 06:52] LABS: BUN Creatinine Ratio 23.3 (10-20); Calcium 8.1 mg/dl (8.5-10.1); Creatinine Clr Calc Pharmacy 103.8 ml/min; Potassium 3.9 mmol/L (3.5-5.1)
[2019-06-12] MEDS ORDERED: COUGH DROP (SUGAR FREE) LOZ 24 LOZ/1 BOX BUCCAL ONE (07:30)
[2019-06-12] MEDS: ENALAPRIL MALEATE 10 MG TAB PO SCH (08:40)
[2019-06-12] MEDS: MULTIVITAMIN TAB PO SCH (08:40)
[2019-06-12] MEDS: DOCUSATE SODIUM 100 MG CAP PO SCH ×2 (08:40→21:40)
[2019-06-12] MEDS: FERROUS GLUCONATE 324 MG TAB PO SCH ×2 (08:40→18:03)
[2019-06-12] MEDS: FEXOFENADINE HCL 180 MG TAB PO SCH (08:40)
[2019-06-12] MEDS: hydroCHLOROthiazide 25 MG TAB PO SCH (08:40)
[2019-06-12] MEDS: ASPIRIN 325 MG ECTAB PO SCH ×2 (08:41→21:40)
[2019-06-12] MEDS: INSULIN ASPART 100 UNITS/ML 3 ML PEN SC SCH ×4 (08:43→21:43)
--- NOTE | 2019-06-12 08:51 | Anesthesiology Progress Note ---
Date of Service June 12, 2019 Anesthesia Post Procedure Vital Signs Vital Signs: Temp Pulse Pulse Resp BP BP Pulse Ox 06/12/19 08:37 36.9 C 84 18 117/74 93 06/12/19 03:45 37.2 C 85 17 125/72 92 06/11/19 23:43 36.7 C 76 17 105/64 93 06/11/19 19:58 36.4 C L 77 18 114/70 98 06/11/19 15:28 36.4 C L 77 18 102/67 93 06/11/19 13:09 16 114/70 06/11/19 11:43 36.2 C L 95 H 16 122/76 96 06/11/19 11:03 36.4 C L 91 H 16 141/57 H 97 06/11/19 10:19 36.5 C 87 15 150/81 H 97 06/11/19 09:45 36.5 C 98 H 16 159/82 H 97 06/11/19 09:30 36.7 C 82 17 148/79 H 98 06/11/19 09:20 36.7 C 88 15 131/80 98 06/11/19 09:10 36.7 C 81 14 135/64 98 06/11/19 09:00 93 H 14 140/74 96 Pain Intensity Right Hip: Pain Intensity: 2 Notes Mental Status: alert / awake / arousable and participated in evaluation Patient Amnestic to Procedure: Yes Nausea / Vomiting: adequately controlled Pain: adequately controlled Airway Patency, RR, SpO2: stable & adequate BP & HR: stable & adequate Hydration State: stable & adequate Neuraxial Anesthesia: was administered and sensory block resolved Anesthetic Complications: no major complications apparent and Pt Satisfied with anesthetic care
--- NOTE | 2019-06-12 10:40 | Pharmacy Report ---
Pharmacy Glycemic Short Note 2 - Date of Service June 12, 2019 - Glycemic Short BSG Results (Last 24 hours): 06/11/19 06/11/19 06/11/19 12:11 17:05 20:45 Glucose POC Glucose 228 H 214 H 149 H 06/12/19 06/12/19 06:04 08:25 Glucose 104 H POC Glucose 126 H OUTPATIENT ANTIDIABETIC REGIMEN: * Lantus 32 units SC daily (usually takes dose between 3-5 pm) * Metformin 1 g PO BID * Sitagliptin 100 mg PO daily * Glyburide 5 mg PO BID * A1c = 6.4 % (04/24/19) ASSESSMENT: * Patient is POD #1 s/p right total hip replacement * BSGs yesterday ranging 149-213 mg/dL * Fasting BSG this morning of 126 mg/dL * Renal function stable (SCr: 0.68 mg/dL, CrCl > 100 mL/min) PLAN FOR INPATIENT GLYCEMIC CONTROL: * Will add patient's home metformin starting this evening (1000 mg PO BIDM) * Basal insulin * Continue patient's home regimen of 32 units daily at 1700 * Bolus insulin - continue current parameters * NovoLog per scale ACHS or Q6hrs while NPO * Goal Range: Low 110 mg/dL - High 140 mg/dL * Correction Factor: 20 mg/dL/unit * Nutritional / Prandial insulin per carb ratio of 1 unit per 7 grams CHO consumed PLAN FOR DISCHARGE: * A1c of 6.4% suggests good glycemic control (less than 7%) with current outpatient regimen. Reasonable to continue this at discharge.
--- NOTE | 2019-06-12 12:54 | Progress Note ---
DATE: 06/12/2019 SUBJECTIVE: A 69-year-old white female postop day 1 from right hip replacement. She is doing pretty well. Pain is controlled. No chest pain or shortness of breath. Not feeling dizzy or lightheaded. OBJECTIVE: VITAL SIGNS: Temperature 37.6. Vital signs stable. PHYSICAL EXAMINATION: GENERAL: Reveals a pleasant, middle-aged female. She is sitting up in bed and eating her lunch. She looks comfortable. EXTREMITIES: Examination of the right hip and leg reveals the leg lengths to be equal. Hip is located. Dressing is clean, dry and intact. Thigh is soft and supple. She is neurologically intact. LABORATORY DATA: Hemoglobin is 11.3. Hematocrit 33.5. Electrolytes are stable. ASSESSMENT: 69-year-old white female postop day 1 from right hip replacement, doing pretty well. Pain has been reasonably well controlled. Hip is located. She is neurologically intact. PLAN: 1. DVT prophylaxis including thigh-high TEDS, SCDs, and aspirin twice a day. 2. PT/OT. Weight bear as tolerated. Right total hip protocol. 3. Pain control, doing well with current pain regimen. 4. Disposition: Plan to discharge to home with some home health once adequately recovered and medically stable.
[2019-06-12] MEDS: METFORMIN HCL 500 MG TAB PO SCH (18:02)
[2019-06-12] MEDS: INSULIN GLARGINE SOLOSTAR 100 UNITS/ML 3 ML PEN SC SCH (18:03)
[2019-06-12] MEDS: ATORVASTATIN 20 MG TAB PO SCH (21:41)
[2019-06-12] MEDS: SENNA 8.6 MG TAB PO SCH (21:41)
[2019-06-12] MEDS: TRIAMCINOLONE ACET NASAL SPRAY 10.8ML BTL NAE SCH (21:41)
[2019-06-13] MEDS: ACETAMINOPHEN 500 MG TAB PO SCH (05:41)
[2019-06-13] MEDS: KETOROLAC TROMETHAMINE 15 MG/ML VIAL IV SCH (05:41)
[2019-06-13] MEDS: ENALAPRIL MALEATE 10 MG TAB PO SCH (08:41)
[2019-06-13] MEDS: FERROUS GLUCONATE 324 MG TAB PO SCH (08:41)
[2019-06-13] MEDS: MULTIVITAMIN TAB PO SCH (08:43)
[2019-06-13] MEDS: DOCUSATE SODIUM 100 MG CAP PO SCH (08:43)
[2019-06-13] MEDS: METFORMIN HCL 500 MG TAB PO SCH (08:43)
[2019-06-13] MEDS: FEXOFENADINE HCL 180 MG TAB PO SCH (08:44)
[2019-06-13] MEDS: ASPIRIN 325 MG ECTAB PO SCH (08:44)
[2019-06-13] MEDS: hydroCHLOROthiazide 25 MG TAB PO SCH (08:44)
[2019-06-13] MEDS: INSULIN ASPART 100 UNITS/ML 3 ML PEN SC SCH (09:14)
--- NOTE | 2019-06-13 09:35 | Progress Note ---
DATE: 06/13/2019 SUBJECTIVE: A 69-year-old white female postop day 2 from a right hip replacement. She is doing pretty well. Pain is controlled. Therapy is going well. No chest pain or shortness of breath. Not feeling dizzy or lightheaded. OBJECTIVE: VITAL SIGNS: Temperature 36.5. Vital signs stable. GENERAL: Shows a pleasant, middle-aged female. I had to wake her this morning. She looks comfortable lying in bed. EXTREMITIES: Examination of the right hip reveals the dressing to be clean, dry and intact. Leg lengths are equal. Hip is located. She is neurologically intact. ASSESSMENT: A 69-year-old white female postoperative day 2 from right hip replacement, doing pretty well. Pain is controlled. Hip is located. She is neurologically intact. PLAN: 1. DVT prophylaxis including thigh-high TEDs, SCDs, and aspirin twice a day. 2. PT/OT. Weight bear as tolerated. Right total hip protocol. 3. Pain control, doing well with current pain regimen. 4. Disposition: Plan to discharge her home with some home health likely later today.
== END 2019-06-13 12:17 | disposition home health service (06) | DRG 470 ==
LOC: ASU 04:55 → 3E 08:46